=== PATIENT | female | born 1975 | race Hispanic/Latino ===

== ENCOUNTER 2024-10-20 20:57 | Emergency (ER) | payer OTHER, SELFPAY ==
--- OUTSIDE RECORDS SUMMARY | 2024-10-20 21:03 | XMS REPORT | Continuity of Care Document ---
Author Name Unknown Address [address] [facility] [address] [place] [address] [facility] thconnect Address [address] [facility] [facility] [address] [place] [address] Care Team Providers Care Forensic Specialist Name Role Phone Marcio DIEGO, [facility] Primary Care Physician [phone] TAMAR DOMINIQUE Attending Clinician Unavailable Vaccine, Adc Family Attending Clinician UnavailTamar Angulo Attending Clinician [phone] Braxton Castellanos MD Attending Clinician BRAXTON CASTELLANOS Attending Clinician Unavailable Gabriela Mao Attending Clinician [phone] Doctor Unassigned, [place] Attending Clinician U navailable Payers Payer Name Policy Type Policy Number Effective Date Expirati on Date Source [employer] [id number] 2019 00:00:00 Problems Condition Name Condition Details Condition Category Status Onset Date Resolution Date Last Treatment Date Treating Clinician Comments Source with inconclusi ve viability with inconclusi ve viability Disease Active 2018-11 00:00: 00 [facility] Multiparit y Multiparit y Disease Active 2018-11 00:00: 00 [facility] BMI 26.0-26.9, adult BMI 26.0-26.9, adult Disease Active 2016-11 0 00:00: 00 [facility] Essential hypertensi on Essential hypertensi on Disease Active 07-24 00:00: 00 Overview: Formattin g of this note might be different from the original. ICD10 Diagnosis Term Director Plans Utility [facility] Type 2 diabetes mellitus without complicati on, with long-term current use of insulin Type 2 diabetes mellitus without complicati on, with long-term current use of insulin Disease Active 07-24 00:00: 00 Overview: Formattin g of this note might be different from the original. ICD10 Diagnosis Term Director Plans Utility [facility] Cervical high risk human papillomav irus (HPV) DNA test positive Cervical high risk human papillomav irus (HPV) DNA test positive Disease Active 07-24 00:00: 00 Overview: Formattin g of this note might be different from the original. HPV + x2, 5 Colposcop y-WNL, 6- Normal Pap , HPV+ HPV positive on 08/2017 pap smear---- > Needs Colposcop y [facility] Multigravi da of advanced maternal age in first trimester Multigravi da of advanced maternal age in first trimester Disease Active 12-06 00:00: 00 Overview: Formattin g of this note might be different from the original. Offer Genetics. [facility] Allergies, Adverse Reactions, Alerts Allergy Name Allergy Type Status Severity Reaction(s) Onset Date Inactive Date Treating Clinician Comments Source NO KNOWN ALLERGIE S Drug Class Active [facility] Social History Social Habit Start Date Stop Date Quantity Comments Source Tobacco use and exposure 2020-06-30 00:00:00 2020-06-30 00:00:00 Never used [facility] Alcohol intake 2020-06-30 00:00:00 2020-06-30 00:00:00 Current non-drinker of alcohol (finding) [facility] Sex Assigned At 1975 00:00:00 1975 00:00:00 [facility] Smoking Status Start Date Stop Date Source Never smoker [facility] Medications Ordered Medication Name Filled Medication Name Start Date Stop Date Current Medication? Ordering Clinician Indication Dosage Frequency Signature (SIG) Comments Components Source Novolin 70/30 U-100 Insulin 100 unit/mL subcutaneou s suspension 2023-11 00:00: 00 Yes unit/mL (70-30) Mamadou Moser Jardiance 25 mg tablet 2023-11- 00:00: 00 Yes 1mg Mamadou Moser atorvastati n 40 mg tablet 2023-11 00:00: 00 Yes 1mg Mamadou Moser cetirizine 10 mg tablet 2023-11 00:00: 00 Yes 1mg Mamadou Moser lisinopril 5 mg tablet 2023-11 00:00: 00 Yes 1mg Mamadou Moser metformin 850 mg tablet 2023-11 00:00: 00 Yes 1mg Mamadou Moser Flonase Allergy Relief 50 mcg/actuati on nasal spray,suspe nsion 2023-11 00:00: 00 Yes 12mcg/a ctuatio n Mamadou Moser metformin 850 mg tablet 2023-11 00:00: 00 Yes 1mg Mamadou Moser atorvastati n 40 mg tablet 2023-11 00:00: 00 Yes 1mg Mamadou Moser lisinopril 5 mg tablet 2023-11 00:00: 00 Yes 1mg Mamadou Moser Novolin 70/30 U-100 Insulin 100 unit/mL subcutaneou s suspension 8-05 00:00: 00 Yes unit/mL (70-30) Mamadou Moser Novolin 70/30 U-100 Insulin 100 unit/mL subcutaneou s suspension - 00:00: 00 Yes unit/mL (70-30) Mamadou Moser atorvastati n 40 mg tablet - 00:00: 00 Yes 1mg Mamadou Moser lisinopril 5 mg tablet -16 00:00: 00 Yes 1mg Mamadou Moser metformin 850 mg tablet -16 00:00: 00 Yes 1mg Mamadou Moser metformin 850 mg tablet - 00:00: 00 Yes 1mg Mamadou Moser levocetiriz ine 5 mg tablet 4- 00:00: 00 Yes 1mg Mamadou Moser Novolin 70/30 U-100 Insulin 100 unit/mL subcutaneou s suspension 4- 00:00: 00 Yes unit/mL (70-30) Mamadou Moser lisinopril 5 mg tablet 02-20 00:00: 00 Yes 1mg Mamadou Moser atorvastati n 40 mg tablet 10 00:00: 00 Yes 1mg Mamadou Moser metformin 850 mg tablet 10 00:00: 00 Yes 1mg Mamadou Moser Novolin 70/30 U-100 Insulin 100 unit/mL subcutaneou s suspension 01-10 00:00: 00 Yes unit/mL (70-30) Mamadou Moser atorvastati n 40 mg tablet 01-10 00:00: 00 Yes 1mg Mamadou Moser lisinopril 5 mg tablet 01-10 00:00: 00 Yes 1mg Mamadou Moser metformin 850 mg tablet 01-10 00:00: 00 Yes 1mg Mamadou Moser INJECT 35 UNITS UNDER SKIN IN THE AFTERNOON 12-18 00:00: 00 Yes [id number] Mamadou Moser TAKE 1 TABLET BY MOUTH ONCE DAILY 12-18 00:00: 00 Yes Mamadou Moser TAKE 1 TABLET BY MOUTH THREE TIMES DAILY 12-18 00:00: 00 Yes Mamadou Moser TAKE 1 TABLET BY MOUTH ONCE DAILY 2022-11 00:00: 00 Yes Mamadou Moser TAKE 1 TABLET BY MOUTH THREE TIMES DAILY 2022-11 00:00: 00 03-16 00:00 :00 No 850 Mamadou Moser TAKE 10 ML BY MOUTH EVERY 4 TO 6 HOURS NEEDED 2022-11 00:00: 00 Yes Mamadou Moser TAKE 10 ML EVERY 4-6 HOURS NEEDED 2022-11 00:00: 00 03-16 00:00 :00 No [id number] Mamadou Moser TAKE 1 TABLET BY MOUTH THREE TIMES DAILY 07-17 00:00: 00 Yes Mamadou Moser INJECT 35 UNITS UNDER THE SKIN IN THE AFTERNOON 07-14 00:00: 00 Yes Mamadou Moser TAKE 1 TABLET BY MOUTH ONCE DAILY 07-14 00:00: 00 Yes Mamadou Moser INJECT 35 UNITS UNDER SKIN IN THE AFTERNOON 07-14 00:00: 00 Yes [id number] Mamadou Babb Ehsan TAKE 1 TABLET BY MOUTH ONCE DAILY 9- 00:00: 00 03-16 00:00 :00 No 5 Mamadou F Ehsan TAKE 1 TABLET BY MOUTH ONCE DAILY - 00:00: 00 03-16 00:00 :00 No 40 Mamadou F Ehsan TAKE 1 TABLET BY MOUTH ONCE DAILY 05-08 00:00: 00 03-16 00:00 :00 No 5 Mamadou F Ehsan TAKE 1 TABLET BY MOUTH ONCE DAILY - 00:00: 00 03-16 00:00 :00 No 5 Mamadou F Ehsan TAKE 1 TABLET BY MOUTH THREE TIMES DAILY 03-23 00:00: 00 Yes 850 Mamadou F Ehsan INJECT 30 UNITS UNDER THE SKIN IN THE AFTERNOON 03-23 00:00: 00 Yes Mamadou F Ehsan TAKE 1 TABLET BY MOUTH ONCE DAILY 03-23 00:00: 00 03-16 00:00 :00 No 40 Mamadou F Ehsan INJECT 30 UNITS UNDER SKIN IN THE AFTERNOON 03-23 00:00: 00 03-16 00:00 :00 No [id number] Mamadou F Ehsan TAKE 1 TABLET BY MOUTH THREE TIMES DAILY - 00:00: 00 03-16 00:00 :00 No 850 Mamadou F Ehsan TAKE 1 TABLET BY MOUTH THREE TIMES DAILY WITH MEALS 2021-11 00:00: 00 Yes Mamadou F Ehsan TAKE 1 TABLET DAILY. 2021-11 00:00: 00 03-16 00:00 :00 No Mamadou F Ehsan INJECT 30 UNITS UNDER SKIN IN THE AFTERNOON 2021-11 00:00: 00 03-16 00:00 :00 No [id number] Mamadou F Ehsan TAKE 1 TABLET DAILY. 2021-11 00:00: 00 03-16 00:00 :00 No 5 Mamadou F Ehsan Dose Unknown 2021-11 00:00: 00 Yes Mamadou F Ehsan TAKE 1 TABLET DAILY. 06-28 00:00: 00 Yes 40 Mamadou F Ehsan Dose Unknown 2022-0 8-16 00:00: 00 Yes Mamadou F Ehsan INJECT 30 UNITS UNDER THE SKIN IN THE AFTERNOON 0 816 00:00: 00 Yes Mamadou Moser TAKE 1 TABLET DAILY. 0 15 00:00: 00 Yes 40 Mamadou Moser Dose Unknown 0 15 00:00: 00 Yes Mamadou Moser Dose Unknown 06-22 00:00: 00 Yes Mamadou Moser TAKE 1 TABLET BY MOUTH THREE TIMES DAILY WITH MEALS 0 06-22 00:00: 00 Yes Mamadou Moser TAKE 1 TABLET BY MOUTH ONCE DAILY NEEDED FOR DIZZINESS 0 06-22 00:00: 00 Yes Mamadou Moser Dose Unknown 06-22 00:00: 00 No TAKE 1 TABLET BY MOUTH ONCE DAILY 0 06-22 00:00: 00 03-16 00:00 :00 No Mamadou Moser TAKE 1 TABLET BY MOUTH ONCE DAILY 06-22 00:00: 00 03-16 00:00 :00 No Mamadou Moser Dose Unknown 06-21 00:00: 00 Yes Mamadou Moser Dose Unknown 06-21 00:00: 00 No lisinopril 5 mg tablet 0 05-01 00:00: 00 Yes 1mg Mamadou Moser metformin 850 mg tablet 0 05-01 00:00: 00 Yes 1mg Mamadou Moser atorvastati n 40 mg tablet 0 05-01 00:00: 00 Yes 1mg Mamadou Moser lisinopril 5 mg tablet 0 05-01 00:00: 00 No 1mg metformin 850 mg tablet 0 05-01 00:00: 00 No 1mg atorvastati n 40 mg tablet 0 05-01 00:00: 00 No 1mg atorvastati n 40 mg tablet 0 04-11 00:00: 00 Yes 1mg Mamadou Moser atorvastati n 40 mg tablet 0 30 00:00: 00 No 1mg TAKE 1 TABLET BY MOUTH TWICE DAILY WITH MEALS 0 03-24 00:00: 00 Yes Mamadou Moser TAKE 1 TABLET BY MOUTH THREE TIMES DAILY NEEDED 03-18 00:00: 00 Yes Mamadou Moser Dose Unknown 03-11 00:00: 00 Yes Mamadou Moser Dose Unknown 03-11 00:00: 00 No Dose Unknown 03-10 00:00: 00 Yes Mamadou Moser Dose Unknown 03-10 00:00: 00 No Dose Unknown 03-07 00:00: 00 Yes Mamadou Moser Dose Unknown 03-07 00:00: 00 No Dose Unknown 03-06 00:00: 00 Yes Mamadou Moser Dose Unknown 03-06 00:00: 00 No meclizine 25 mg tablet 03-04 00:00: 00 Yes 1mg Mamadou Moser meclizine 25 mg tablet 03-04 00:00: 00 No 1mg metformin 850 mg tablet 3-08 00:00: 00 Yes 1mg Mamadou Moser metformin 850 mg tablet 3-08 00:00: 00 No 1mg lisinopril 5 mg tablet 3-05 00:00: 00 No 1mg metformin 850 mg tablet 3-05 00:00: 00 No 1mg ibuprofen 600 mg tablet 3-05 00:00: 00 No 1mg Dose Unknown 3-05 00:00: 00 No Novolin 70/30 U-100 Insulin 100 unit/mL subcutaneou s suspension 3-05 00:00: 00 Yes unit/mL (70-30) Mamadou Moser lisinopril 5 mg tablet 3-05 00:00: 00 Yes 1mg Mamadou Moser metformin 850 mg tablet 3-05 00:00: 00 Yes 1mg Mamadou Moser ibuprofen 600 mg tablet 3-05 00:00: 00 Yes 1mg Mamadou Moser Dose Unknown 3-05 00:00: 00 Yes Mamadou Moser Novolin 70/30 U-100 Insulin 100 unit/mL subcutaneou s suspension 3-05 00:00: 00 No unit/mL (70-30) Dose Unknown 2020-11 2-03 00:00: 00 No Dose Unknown 2020-11 00:00: 00 Yes Mamadou Moser Dose Unknown 2020-11 00:00: 00 No Dose Unknown 2020-11 00:00: 00 No Dose Unknown 2020-11 00:00: 00 No atorvastati n 40 mg tablet 2020-11 00:00: 00 No 1mg Dose Unknown 2020-11 00:00: 00 Yes Mamadou Moser Dose Unknown 2020-11 00:00: 00 Yes Mamadou Moser Dose Unknown 2020-11 00:00: 00 Yes Mamadou Moser atorvastati n 40 mg tablet 2020-11 00:00: 00 Yes 1mg Mamadou Moser atorvastati n 40 mg tablet 07-13 00:00: 00 No 1mg atorvastati n 40 mg tablet 07-13 00:00: 00 Yes 1mg Mamadou Moser Dose Unknown 07-08 00:00: 00 No Ann Allergy 180 mg tablet 07-08 00:00: 00 No 1mg metformin 850 mg tablet 07-08 00:00: 00 No 1mg lisinopril 5 mg tablet 07-08 00:00: 00 No 1mg Dose Unknown 07-08 00:00: 00 Yes Mamadou Moser Ann Allergy 180 mg tablet 07-08 00:00: 00 Yes 1mg Mamadou Moser metformin 850 mg tablet 07-08 00:00: 00 Yes 1mg Mamadou Moser lisinopril 5 mg tablet 07-08 00:00: 00 Yes 1mg Mamadou Moser Dose Unknown 06-15 00:00: 00 No Dose Unknown 06-15 00:00: 00 Yes Mamadou Moser Novolin 70/30 U-100 Insulin 100 unit/mL subcutaneou s suspension 04-05 00:00: 00 No unit/mL (70-30) metformin 850 mg tablet 04-05 00:00: 00 No 1mg lisinopril 5 mg tablet 04-05 00:00: 00 No 1mg Dose Unknown 04-05 00:00: 00 No Novolin 70/30 U-100 Insulin 100 unit/mL subcutaneou s suspension 04-05 00:00: 00 Yes unit/mL (70-30) Mamadou Moser metformin 850 mg tablet 04-05 00:00: 00 Yes 1mg Mamadou Moser lisinopril 5 mg tablet 04-05 00:00: 00 Yes 1mg Mamadou Moser Dose Unknown 04-05 00:00: 00 Yes Mamadou Moser Novolin 70/30 U-100 Insulin 100 unit/mL subcutaneou s suspension 02-03 00:00: 00 No unit/mL (70-30) metformin 850 mg tablet 02-03 00:00: 00 No 1mg lisinopril 5 mg tablet 02-03 00:00: 00 No 1mg Novolin 70/30 U-100 Insulin 100 unit/mL subcutaneou s suspension 02-03 00:00: 00 Yes unit/mL (70-30) Mamadou Moser metformin 850 mg tablet 02-03 00:00: 00 Yes 1mg Mamadou Moser lisinopril 5 mg tablet 02-03 00:00: 00 Yes 1mg Mamadou Moser Novolin 70/30 U-100 Insulin 100 unit/mL subcutaneou s suspension 01-08 00:00: 00 No unit/mL (70-30) metformin 850 mg tablet 01-08 00:00: 00 No 1mg Novolin 70/30 U-100 Insulin 100 unit/mL subcutaneou s suspension 01-08 00:00: 00 Yes unit/mL (70-30) Mamadou Moser metformin 850 mg tablet - 00:00: 00 Yes 1mg Mamadou Moser lisinopril 5 mg tablet -24 00:00: 00 No 1mg lisinopril 5 mg tablet 2-24 00:00: 00 Yes 1mg Mamadou Moser Dose Unknown 12-23 00:00: 00 No Dose Unknown 2 00:00: 00 Yes Mamadou Moser Bactrim DS 800 mg-160 mg tablet 02-26 00:00: 00 No 1mg Bactrim DS 800 mg-160 mg tablet 02-26 00:00: 00 Yes 1mg Mamadou Moser norethindro ne 0.35 mg tablet 2018-11 00:00: 00 Yes [id number] .35mg Take 1 tablet by mouth daily. [facility] insulin NPH hum/reg insulin hm (NOVOLIN 70/30 U-100 INSULIN SC) 2018-11 15:24: 29 Yes 20U inject 20 Units under the skin 2 (two) times daily. [facility] metformin 1,000 mg tablet 01-23 00:00: 00 No 1mg metformin 1,000 mg tablet 01-23 00:00: 00 Yes 1mg Mamadou Moser Novolin 70/30 100 unit/mL subcutaneou s suspension 2015-11 00:00: 00 No unit/mL (70-30) metformin 1,000 mg tablet 2015-11 00:00: 00 No 1mg Novolin 70/30 U-100 Insulin 100 unit/mL subcutaneou s suspension 2015-11 00:00: 00 Yes unit/mL (70-30) Mamadou Moser metformin 1,000 mg tablet 2015-11 00:00: 00 Yes 1mg Mamadou Moser metformin 1,000 mg tablet 06-05 00:00: 00 No 1mg metformin 1,000 mg tablet 06-05 00:00: 00 Yes 1mg Mamadou Moser Bactrim DS 800 mg-160 mg tablet 05-27 00:00: 00 No 1mg Bactrim DS 800 mg-160 mg tablet 05-27 00:00: 00 Yes 1mg Mamadou Moser Lantus 100 unit/mL subcutaneou s solution 12-16 00:00: 00 No 10unit/ mL metformin 500 mg tablet 12-16 00:00: 00 No 1mg metformin 1,000 mg tablet 12-16 00:00: 00 No 1mg Lantus 100 unit/mL subcutaneou s solution 12-16 00:00: 00 Yes 10unit/ mL Mamadou Moser metformin 500 mg tablet 12-16 00:00: 00 Yes 1mg Mamadou Moser metformin 1,000 mg tablet 12-16 00:00: 00 Yes 1mg Mamadou Moser Vital Signs Vital Name Observation Time Observation Value Comments S ource BP Systolic 2024-10-08 16:50:00 135 mm[Hg] Step hen F Ehsan BP Diastolic 2024-10-08 16:50:00 84 mm[Hg] Avinash phen F Ehsan Weight Measured 2024-10-08 16:50:00 150.20 pounds Mamadou F Ehsan Height Measured 2024-10-08 16:50:00 62.00 inches Mamadou F Ehsan Body Temperature 2024-10-08 16:50:00 98.70 degrees Mamadou F Ehsan Heart Rate 2024-10-08 16:50:00 98.00 /min Nirali en F Ehsan Respiratory Rate 2024-10-08 16:50:00 18.00 /min Mamadou F Ehsan BP Systolic 2024-09-26 17:05:00 132 mm[Hg] Step hen F Ehsan BP Diastolic 2024-09-26 17:05:00 82 mm[Hg] Avinash phen F Ehsan Weight Measured 2024-09-26 17:05:00 168.80 pounds Mamadou Moser Height Measured 2024-09-26 17:05:00 62.00 inches Mamadou F Ehsan Body Temperature 2024-09-26 17:05:00 97.80 degrees Mamadou F Ehsan Heart Rate 2024-09-26 17:05:00 105.00 /min Step hen F Ehsan Respiratory Rate 2024-09-26 17:05:00 18.00 /min Mamadou F Ehsan BP Systolic 2024-05-28 17:08:00 128 mm[Hg] Step hen F Ehsan BP Diastolic 2024-05-28 17:08:00 84 mm[Hg] Avinash phen F Ehsan Weight Measured 2024-05-28 17:08:00 173.40 pounds Mamadou Moser Height Measured 2024-05-28 17:08:00 62.00 inches Mamadou Skinny Moser Body Temperature 2024-05-28 17:08:00 98.20 degrees Mamadou F Ehsan Heart Rate 2024-05-28 17:08:00 102.00 /min Step hen F Ehsan Respiratory Rate 2024-05-28 17:08:00 17.00 /min Mamadou F Ehsan BP Systolic 2024-02-21 16:21:00 137 mm[Hg] Step hen F Ehsan BP Diastolic 2024-02-21 16:21:00 85 mm[Hg] Avinash phen F Ehsan Weight Measured 2024-02-21 16:21:00 172.60 pounds Mamadou F Ehsan Height Measured 2024-02-21 16:21:00 62.00 inches Mamadou F Ehsan Body Temperature 2024-02-21 16:21:00 98.20 degrees Mamadou F Ehsan Heart Rate 2024-02-21 16:21:00 100.00 /min Step hen F Ehsan Respiratory Rate 2024-02-21 16:21:00 18.00 /min Mamadou F Ehsan BP Systolic 2023-12-18 16:32:00 128 mm[Hg] Step hen F Ehsan BP Diastolic 2023-12-18 16:32:00 83 mm[Hg] Avinash phen F Ehsan Weight Measured 2023-12-18 16:32:00 169.80 pounds Mamadou F Ehsan Height Measured 2023-12-18 16:32:00 62.00 inches Mamadou F Ehsan Body Temperature 2023-12-18 16:32:00 97.90 degrees Mamadou F Ehsan Heart Rate 2023-12-18 16:32:00 100.00 /min Step hen F Ehsan Respiratory Rate 2023-12-18 16:32:00 Mamadou F Ehsan BP Systolic 2023-09-21 11:49:00 144 mm[Hg] Step hen F Ehsan BP Diastolic 2023-09-21 11:49:00 79 mm[Hg] Avinash phen F Ehsan Weight Measured 2023-09-21 11:49:00 165.00 pounds Mamadou F Ehsan Height Measured 2023-09-21 11:49:00 62.00 inches Mamadou F Ehsan Body Temperature 2023-09-21 11:49:00 98.20 degrees Mamadou F Ehsan Heart Rate 2023-09-21 11:49:00 102.00 /min Step hen F Ehsan Respiratory Rate 2023-09-21 11:49:00 19.00 /min Mamadou F Ehsan BP Systolic 2023-07-14 16:43:00 146 mm[Hg] Step hen F Ehsan BP Diastolic 2023-07-14 16:43:00 90 mm[Hg] Avinash phen F Ehsan Weight Measured 2023-07-14 16:43:00 163.80 pounds Mamadou F Ehsan Height Measured 2023-07-14 16:43:00 62.00 inches Mamadou F Ehsan Body Temperature 2023-07-14 16:43:00 98.30 degrees Mamadou F Ehsan Heart Rate 2023-07-14 16:43:00 99.00 /min Nirali en F Ehsan Respiratory Rate 2023-07-14 16:43:00 17.00 /min Mamadou F Ehsan BP Systolic 2023-04-05 16:51:00 130 mm[Hg] Step hen F Ehsan BP Diastolic 2023-04-05 16:51:00 83 mm[Hg] Avinash phen F Ehsan Weight Measured 2023-04-05 16:51:00 153.20 pounds Mamadou F Ehsan Height Measured 2023-04-05 16:51:00 62.00 inches Mamadou F Ehsan Body Temperature 2023-04-05 16:51:00 98.00 degrees Mamadou F Ehsan Heart Rate 2023-04-05 16:51:00 96.00 /min Nirali en F Ehsan Respiratory Rate 2023-04-05 16:51:00 Mamadou F Ehsan BP Systolic 2023-03-23 10:16:00 120 mm[Hg] Step hen F Ehsan BP Diastolic 2023-03-23 10:16:00 83 mm[Hg] Avinash phen F Ehsan Weight Measured 2023-03-23 10:16:00 153.40 pounds Mamadou F Ehsan Height Measured 2023-03-23 10:16:00 62.00 inches Mamadou F Ehsan Body Temperature 2023-03-23 10:16:00 98.20 degrees Mamadou F Ehsan Heart Rate 2023-03-23 10:16:00 98.00 /min Nirali en F Ehsan Respiratory Rate 2023-03-23 10:16:00 Mamadou F Ehsan BP Systolic 2022-10-07 16:43:00 146 mm[Hg] Step hen F Ehsan BP Diastolic 2022-10-07 16:43:00 83 mm[Hg] Avinash phen F Ehsan Weight Measured 2022-10-07 16:43:00 152.00 pounds Mamadou F Ehsan Height Measured 2022-10-07 16:43:00 62.00 inches Mamadou F Ehsan Body Temperature 2022-10-07 16:43:00 98.20 degrees Mamadou F Ehsan Heart Rate 2022-10-07 16:43:00 108.00 /min Step hen F Ehsan Respiratory Rate 2022-10-07 16:43:00 18.00 /min Mamadou F Ehsan BP Systolic 2022-06-22 11:43:00 124 mm[Hg] Step hen F Ehsan BP Diastolic 2022-06-22 11:43:00 81 mm[Hg] Avinash phen F Ehsan Weight Measured 2022-06-22 11:43:00 155.00 pounds Mamadou F Ehsan Height Measured 2022-06-22 11:43:00 62.00 inches Mamadou F Ehsan Body Temperature 2022-06-22 11:43:00 98.40 degrees Mamadou F Ehsan Heart Rate 2022-06-22 11:43:00 98.00 /min Nirali en F Ehsan Respiratory Rate 2022-06-22 11:43:00 18.00 /min Mamadou F Ehsan BP Systolic 2022-03-04 13:25:00 127 mm[Hg] Step hen F Ehsan BP Diastolic 2022-03-04 13:25:00 81 mm[Hg] Avinash phen F Ehsan Weight Measured 2022-03-04 13:25:00 157.20 pounds Mamadou F Ehsan Height Measured 2022-03-04 13:25:00 62.00 inches Mamadou F Ehsan Body Temperature 2022-03-04 13:25:00 97.80 degrees Mamadou F Ehsan Heart Rate 2022-03-04 13:25:00 101.00 /min Step hen F Ehsan Respiratory Rate 2022-03-04 13:25:00 16.00 /min Mamadou F Ehsan BP Systolic 2022-01-15 11:25:00 108 mm[Hg] BP Diastolic 2022-01-15 11:25:00 71 mm[Hg] Weight Measured 2022-01-15 11:25:00 127.20 pounds Height Measured 2022-01-15 11:25:00 62.00 inches Body Temperature 2022-01-15 11:25:00 98.20 degrees Heart Rate 2022-01-15 11:25:00 110.00 /min Respiratory Rate 2022-01-15 11:25:00 BP Systolic 2021-10-11 17:23:00 127 mm[Hg] BP Diastolic 2021-10-11 17:23:00 83 mm[Hg] Weight Measured 2021-10-11 17:23:00 163.40 pounds Height Measured 2021-10-11 17:23:00 62.00 inches Body Temperature 2021-10-11 17:23:00 98.40 degrees Heart Rate 2021-10-11 17:23:00 110.00 /min Respiratory Rate 2021-10-11 17:23:00 18.00 /min BP Systolic 2021-07-08 11:16:00 119 mm[Hg] BP Diastolic 2021-07-08 11:16:00 73 mm[Hg] Weight Measured 2021-07-08 11:16:00 160.40 pounds Height Measured 2021-07-08 11:16:00 62.00 inches Body Temperature 2021-07-08 11:16:00 98.10 degrees Heart Rate 2021-07-08 11:16:00 100.00 /min Respiratory Rate 2021-07-08 11:16:00 BP Systolic 2021-04-05 16:44:00 133 mm[Hg] BP Diastolic 2021-04-05 16:44:00 84 mm[Hg] Weight Measured 2021-04-05 16:44:00 160.60 pounds Height Measured 2021-04-05 16:44:00 62.00 inches Body Temperature 2021-04-05 16:44:00 98.40 degrees Heart Rate 2021-04-05 16:44:00 95.00 /min Respiratory Rate 2021-04-05 16:44:00 17.00 /min BP Systolic 2021-02-03 16:46:00 132 mm[Hg] BP Diastolic 2021-02-03 16:46:00 79 mm[Hg] Weight Measured 2021-02-03 16:46:00 159.40 pounds Height Measured 2021-02-03 16:46:00 62.00 inches Body Temperature 2021-02-03 16:46:00 98.60 degrees Heart Rate 2021-02-03 16:46:00 103.00 /min Respiratory Rate 2021-02-03 16:46:00 18.00 /min BP Systolic 2021-01-06 17:37:00 159 mm[Hg] BP Diastolic 2021-01-06 17:37:00 94 mm[Hg] Weight Measured 2021-01-06 17:37:00 161.40 pounds Height Measured 2021-01-06 17:37:00 62.00 inches Body Temperature 2021-01-06 17:37:00 99.00 degrees Heart Rate 2021-01-06 17:37:00 97.00 /min Respiratory Rate 2021-01-06 17:37:00 17.00 /min BP Systolic 2020-12-23 17:31:00 153 mm[Hg] BP Diastolic 2020-12-23 17:31:00 92 mm[Hg] Weight Measured 2020-12-23 17:31:00 162.20 pounds Height Measured 2020-12-23 17:31:00 62.00 inches Body Temperature 2020-12-23 17:31:00 98.00 degrees Heart Rate 2020-12-23 17:31:00 104.00 /min Respiratory Rate 2020-12-23 17:31:00 17.00 /min BP Systolic 2020-02-27 13:56:00 137 mm[Hg] BP Diastolic 2020-02-27 13:56:00 85 mm[Hg] Weight Measured 2020-02-27 13:56:00 149.80 pounds Height Measured 2020-02-27 13:56:00 62.00 inches Body Temperature 2020-02-27 13:56:00 98.70 degrees Heart Rate 2020-02-27 13:56:00 106.00 /min Respiratory Rate 2020-02-27 13:56:00 16.00 /min Procedures Procedure Date / Time Performed Performing Clinicia [facility] Source [id number] Ultrasound, Abdominal, Real Time With Image Documentation; Complete 2024-01-11 00:00:00 Mamadou Moser SARS-COV-2 COVID-19 VACCINE,0.3ML,IM (PFIZER) 2021-06-12 18:33:18 Doctor Unassigned, [facility] SARS-COV-2 COVID-19 VACCINE,0.3ML,IM (PFIZER) 2021-05-22 19:12:10 Doctor Unassigned, [facility] REFERRAL- REQUEST/RESPONSE 2020-12-25 06:01:00 Doctor Unassigned, [facility] Plan of Care Planned Activity Planned Date Details Comments Source Goal Plan of Care Note [code = 98193-1] Goal Plan of Care Note [code = 47947-9] Goal Plan of Care Note [code = 59986-4] Goal Plan of Care Note [code = 50132-1] Goal Plan of Care Note [code = 20090-5] Goal Plan of Care Note [code = 40935-1] Goal Plan of Care Note [code = 50964-5] Goal Plan of Care Note [code = 72169-2] Goal Plan of Care Note [code = 80698-0] Goal Plan of Care Note [code = 42319-9] Goal Plan of Care Note [code = 21438-1] Goal Plan of Care Note [code = 31787-4] Goal Plan of Care Note [code = 00769-9] Goal Plan of Care Note [code = 79409-8] Goal Plan of Care Note [code = 74791-3] Goal Plan of Care Note [code = 00735-0] Goal Plan of Care Note [code = 78674-4] Goal Plan of Care Note [code = 81317-3] Goal Plan of Care Note [code = 90589-5] Goal Plan of Care Note [code = 92030-1] Goal Plan of Care Note [code = 49995-4] Goal Plan of Care Note [code = 76729-1] Goal Plan of Care Note [code = 12087-8] Goal Plan of Care Note [code = 79260-4] Encounters Start Date/Time End Date/Time Encounter Type Admission Type Attending Clinicians Care Facility Care Department Encounter ID Source 2024-10-19 13:46:12 2024-10-19 13:46:12 Outpatient [facility] [id number] Mamadou Moser 2024-10-08 16:35:01 2024-10-08 16:35:01 Outpatient [facility] [id number] Mamadou Moser 2024-10-08 00:00:00 2024-10-08 00:00:00 Outpatient Visit [facility] [id number] Mamadou Moser 2024-09-27 15:33:29 2024-09-27 15:33:29 Outpatient [facility] [id number] Mamadou Moser 2024-09-26 16:49:04 2024-09-26 16:49:04 Outpatient SFA SFA 1113 Mamadou Moser 2024-09-26 00:00:00 2024-09-26 00:00:00 Outpatient Visit SFA [id number] Mamadou Moser 2024-05-28 16:56:26 2024-05-28 16:56:26 Outpatient SFA SFA 0716 Mamadou Moser 2024-05-28 00:00:00 2024-05-28 00:00:00 Outpatient Visit SFA [id number] Mamadou Moser 2024-02-23 16:56:28 2024-02-23 16:56:28 Outpatient SFA SFA 2 Mamadou Moser 2024-02-21 16:13:15 2024-02-21 16:13:15 Outpatient SFA SFA 0 Mamadou Moser 2024-01-11 09:29:54 2024-01-11 09:29:54 Outpatient SFA SFA 0229 Mamadou Moser 2023-12-18 16:31:42 2023-12-18 16:31:42 Outpatient SFA SFA 0205 Mamadou Moser 2023-09-21 11:40:21 2023-09-21 11:40:21 Outpatient SFA SFA 1109 Mamadou Moser 2023-07-14 16:32:07 2023-07-14 16:32:07 Outpatient SFA SFA 0901 Mamadou Moser 2023-04-11 15:31:40 2023-04-11 15:31:40 Outpatient SFA SFA 0530 Mamadou Babb Ehsan 2023-04-10 14:55:44 2023-04-10 14:55:44 Outpatient [facility] 528 Mamadou Babb Ehsan 2023-04-06 16:13:15 2023-04-06 16:13:15 Outpatient [facility] 524 Mamadou Babb Ranier 2023-04-05 16:44:10 2023-04-05 16:44:10 Outpatient [facility] 523 Mamadou Babb Ranier 2023-03-23 10:16:09 2023-03-23 10:16:09 Outpatient [facility] 05 Mamadou Babb Ranier 2022-10-07 16:31:59 2022-10-07 16:31:59 Outpatient [facility] 1125 Mamadou Babb Ehsan 2022-06-22 00:00:00 2022-06-22 00:00:00 Outpatient Visit [id number] 2021-06-12 13:45:00 2021-06-12 13:45:00 Outpatient Angela TAMAR DOMINIQUE [facility] [id number] [facility] 2021-06-12 13:28:25 2021-06-12 13:38:25 Imm/Inj Visit Vaccine, Kasia Family Dominique [facility] [id number] [id number] [id number] [id number] [facility] 2021-06-12 13:40:00 2021-06-12 13:37:38 Outpatient Angela TAMAR DOMINIQUE [facility] [id number] [facility] 2021-05-22 14:04:06 2021-05-22 14:14:06 Imm/Inj Visit Vaccine, Braxton Johnson [facility] .2.840.114 350.1.13.10 [id number] [id number] [facility] 2021-05-22 14:00:00 2021-05-22 14:00:00 Outpatient BRAXTON GOLDEN [facility] [id number] [facility] 2021-02-20 16:00:00 2021-02-20 16:00:00 Outpatient R [facility] [id number] [facility] 2021-02-20 13:40:00 2021-02-20 13:40:00 Outpatient [facility] [id number] [facility] 2021-01-08 00:00:00 2021-01-08 00:00:00 Letter (Out) Gabriela Yanez [facility] [id number] [id number] [id number] [id number] [facility] 2020-12-25 00:00:00 2020-12-25 00:00:00 Orders Only Doctor Unassigned, [place] [facility] [id number] 350.1.13.10 [id number] [id number] [facility] Results Test Description Test Time Test Comments Results Result Co mments Source VAGINAL PATHOGENS DNA [id number] 10:26:29* Test Item Value Reference Range Interpretation Comme nts TIFFANIE SPECIES (test code = 01794) NEGATIVE NEGATIVE G. VAGINALIS (test code = 79731) NEGATIVE NEGATIVE T. VAGINALIS (test code = 35381) NEGATIVE NEGATIVE Note: The BD Aff irm VPIII Microbial Identification Testis a DNA probe test intended for use in the detectionand identification of Tiffanie species, Gardnerellavaginalis and Trichomonas vaginalis nucleic acid. UNLESS OTHERWISE INDICATED, ALL TESTING PERFORMED AT [facility] [address] [place] [id number] SERVER SECURITY ADMINISTRATOR: ANDREE MICHAEL M.D. CLIA NUMBER [id number] [place]. [id number] Occult Blood, Fecal, [id number] 00:00:00* Test Item Value Reference Range Interpretation Comme nts Occult Blood, Fecal, IA (cassi t code = 01342-0) Negative Mamadou MoserALBUMIN/CREATININE RATIO, URINE, [id number] 05:16:54* Test Item Value Reference Range Interpretation Comme nts CREATININE, URINE, CONC. (test code = 2072) 46.9 MG/DL NOT ESTAB ALBUMIN, URINE, RANDOM (test code = 94507) <0.2 MG/DL NOT ESTAB CALC ALBUMIN/CREAT, RND (test code = 51447) <4 MG/G <30 Note: Albumin/Cr eatinine ratio reference interval reflects ADA and NKF guidelines. UNLESS OTHERWISE INDICATED, ALL TESTING PERFORMED AT [facility] [address] [place] [address] SERVER SECURITY ADMINISTRATOR: ANDREE MICHAEL M.D. CLIA NUMBER [id number] [place]. [id number] COMPREHENSIVE METABOLIC [id number] 05:08:23* Test Item Value Reference Range Interpretation Comme nts GLUCOSE (test code = 7) 263 MG/DL 70-99 H BUN (test code = 2208) 22 MG/DL 6-20 H CREATININE (test code = 2214) 0.70 MG/DL 0.60-1.30 eGFR (2020 CKD-EPI) (test code = 40085) 107 ML/MIN/1.73 >60 CALC BUN/CREAT (test code = 2235) 31 RATIO 6-28 H SODIUM (test code = 2231) 133 MEQ/L 133-146 POTASSIUM (test code = 2228) 4.4 MEQ/L 3.5-5.4 CHLORIDE (test code = 2215) 97 MEQ/L 95-107 CARBON DIOXIDE (test code = 2206) 26 MEQ/L 19-31 CALCIUM (test code = 2209) 9.5 MG/DL 8.5-10.5 PROTEIN, TOTAL (test code = 2229) 7.2 G/DL 6.1-8.3 ALBUMIN (test code = 2201) 4.2 G/DL 3.5-5.2 CALC GLOBULIN (test code = 2240) 3.0 G/DL 1.9-3.7 CALC A/G RATIO (test code = 2234) 1.4 RATIO 1.0-2.6 BILIRUBIN, TOTAL (test code = 2207) <0.2 MG/DL <=1.2 ALKALINE PHOSPHATASE (test code = 2204) 167 U/L 40-123 H AST (test code = 2218) 17 U/L 9-40 ALT (test code = 2219) 11 U/L 5-40 LIPID [id number] 05:08:23* Test Item Value Reference Range Interpretation Comme nts CHOLESTEROL (test code = 2210) 121 MG/DL <200 TRIGLYCERIDES (test code = 2232) 58 MG/DL <150 HDL CHOLESTEROL (test code = 2220) 46 MG/DL >39 CALC LDL CHOL (test code = 2237) 62 MG/DL <100 NOTE: CALCULATED LDL IS BASED ON WILI-CHA METHOD WHICHINCLUDES ADJUSTABLE TRIGLYCERIDE:VLDL CHOLESTEROL RATIO.THIS FACTOR VARIES BY MEASURED TRIGLYCERIDE AND NON-HDLCHOLESTEROL CONCENTRATIONS WITH INCREASED CALCULATED LDL SEENIN HIGHER TRIGLYCERIDE OR LOWER NON-HDL SPECIMENS. FOR MOREINFORMATION, SEE CLIENT ANNOUNCEMENT AT [email or web address] RISK RATIO LDL/HDL (test code = 2237) 1.35 RATIO <3.22 HEMOGLOBIN [id number] 04:32:13* Test Item Value Reference Range Interpretation Comme nts HEMOGLOBIN A1c (test code = 12201) 9.7 % 4.2-5.6 H [employer] GUIDELINES FOR HGB A1C: PREDIABETES/INCREASED RISK . . . . . . . 5.7-6.4% DIAGNOSIS OF DIABETES . . . . . . . . . >=6.5% WITH CONFIRMATION OR APPROPRIATE SYMPTOMS NOTE: ASSAY MAY BE AFFECTED BY HEMOGLOBINOPATHIES (SICKLE CELL ANEMIA, S-C DISEASE, OTHERS) OR ARTIFICIALLY LOWERED BY DECREASED RED CELL SURVIVAL (HEMOLYTIC ANEMIAS, BLOOD LOSS, ETC.). CONSIDER ALTERNATE TESTING OR LABORATORY CONSULTATION. COMPREHENSIVE METABOLIC [id number] 00:00:00* Test Item Value Reference Range Interpretation Comme nts GLUCOSE (test code = 2217) 263 MG/DL BUN (test code = 8) 22 MG/DL CREATININE (test code = 2214) 0.70 MG/DL eGFR (2020 CKD-EPI) (test code = 33453) 107 ML/MIN/1.73 CALC BUN/CREAT (test code = 2235) 31 RATIO SODIUM (test code = 2231) 133 MEQ/L POTASSIUM (test code = 2228) 4.4 MEQ/L CHLORIDE (test code = 2215) 97 MEQ/L CARBON DIOXIDE (test code = 2206) 26 MEQ/L CALCIUM (test code = 2209) 9.5 MG/DL PROTEIN, TOTAL (test code = 2229) 7.2 G/DL ALBUMIN (test code = 2201) 4.2 G/DL CALC GLOBULIN (test code = 2240) 3.0 G/DL CALC A/G RATIO (test code = 2234) 1.4 RATIO BILIRUBIN, TOTAL (test code = 2207) <0.2 MG/DL ALKALINE PHOSPHATASE (test code = 2204) 167 U/L AST (test code = 2218) 17 U/L ALT (test code = 2219) 11 U/L Mamadou MoserLIPID [id number] 00:00:00* Test Item Value Reference Range Interpretation Comme nts CHOLESTEROL (test code = 2210) 121 MG/DL TRIGLYCERIDES (test code = 2232) 58 MG/DL HDL CHOLESTEROL (test code = 2220) 46 MG/DL CALC LDL CHOL (test code = 2237) 62 MG/DL RISK RATIO LDL/HDL (test cod e = 2238) 1.35 RATIO Mamadou MoserHEMOGLOBIN [id number] 00:00:00* Test Item Value Reference Range Interpretation Comme nts HEMOGLOBIN A1c (test code = 43018) 9.7 % Mamadou MoserALBUMIN/CREATININE RATIO, RANDOM [id number] 00:00:00* Test Item Value Reference Range Interpretation Comme nts CREATININE, URINE, CONC. (te st code = 2072) 46.9 MG/DL ALBUMIN, URINE, RANDOM (test code = 19874) <0.2 MG/DL CALC ALBUMIN/CREAT, RND (cassi t code = 34468) <4 MG/G Mamadou MoserHEPATIC FUNCTION PANEL [ADDED]2024-02-26 00:00:00* Test Item Value Reference Range Interpretation Comme nts PROTEIN, TOTAL (test code = 2229) 7.6 G/DL ALBUMIN (test code = 2201) 4.7 G/DL BILIRUBIN, TOTAL (test code = 2207) 0.2 MG/DL BILIRUBIN, DIRECT (test code = 2021) 0.1 MG/DL ALKALINE PHOSPHATASE (test c ode = 2204) 145 U/L AST (test code = 2218) 22 U/L ALT (test code = 2219) 12 U/L Mamadou Babb AustinHEPATIC FUNCTION PANEL [ADDED]2024-02-26 00:00:00* Test Item Value Reference Range Interpretation Comme nts PROTEIN, TOTAL (test code = 2229) 7.6 G/DL ALBUMIN (test code = 2201) 4.7 G/DL BILIRUBIN, TOTAL (test code = 2207) 0.2 MG/DL BILIRUBIN, DIRECT (test code = 2021) 0.1 MG/DL ALKALINE PHOSPHATASE (test c ode = 2204) 145 U/L AST (test code = 2218) 22 U/L ALT (test code = 2219) 12 U/L Mamadou Babb AustinHEPATIC FUNCTION PANEL [ADDED]2024-02-26 00:00:00* Test Item Value Reference Range Interpretation Comme nts PROTEIN, TOTAL (test code = 2229) 7.6 G/DL ALBUMIN (test code = 2201) 4.7 G/DL BILIRUBIN, TOTAL (test code = 2207) 0.2 MG/DL BILIRUBIN, DIRECT (test code = 2021) 0.1 MG/DL ALKALINE PHOSPHATASE (test c ode = 2204) 145 U/L AST (test code = 2218) 22 U/L ALT (test code = 2219) 12 U/L Mamadou Babb AustinHEMOGLOBIN A1c [ADDED]2024-02-25 00:00:00* Test Item Value Reference Range Interpretation Comme nts HEMOGLOBIN A1c (test code = 24141) 7.7 % Mamadou F AustinHEMOGLOBIN A1c [ADDED]2024-02-25 00:00:00* Test Item Value Reference Range Interpretation Comme nts HEMOGLOBIN A1c (test code = 79438) 7.7 % Mamadou F AustinHEMOGLOBIN A1c [ADDED]2024-02-25 00:00:00* Test Item Value Reference Range Interpretation Comme nts HEMOGLOBIN A1c (test code = 76524) 7.7 % Mamadou F EhsanCOMPREHENSIVE METABOLIC [id number] 05:08:40* Test Item Value Reference Range Interpretation Comme nts GLUCOSE (test code = 2217) 185 MG/DL 70-99 H BUN (test code = 2208) 26 MG/DL 6-20 H CREATININE (test code = 2214) 0.70 MG/DL 0.60-1.30 eGFR (2020 CKD-EPI) (test code = ) 107 ML/MIN/1.73 >60 CALC BUN/CREAT (test code = 2234) 37 RATIO 6-28 H SODIUM (test code = 2230) 138 MEQ/L 133-146 POTASSIUM (test code = 2227) 4.4 MEQ/L 3.5-5.4 CHLORIDE (test code = 2214) 99 MEQ/L 95-107 CARBON DIOXIDE (test code = 2205) 26 MEQ/L 19-31 CALCIUM (test code = 2208) 10.1 MG/DL 8.5-10.5 PROTEIN, TOTAL (test code = 2228) 7.7 G/DL 6.1-8.3 ALBUMIN (test code = 2200) 5.1 G/DL 3.5-5.2 CALC GLOBULIN (test code = 2239) 2.6 G/DL 1.9-3.7 CALC A/G RATIO (test code = 2233) 2.0 RATIO 1.0-2.6 BILIRUBIN, TOTAL (test code = 2206) <0.2 MG/DL <=1.2 ALKALINE PHOSPHATASE (test code = 2203) 236 U/L 40-120 H AST (test code = 2217) 23 U/L 9-40 ALT (test code = 2219) 15 U/L 5-40 UNLESS OTHERWISE INDICATED, ALL TESTING PERFORMED AT [facility] [address] [place] [address] SERVER SECURITY ADMINISTRATOR: ANDREE MICHAEL M.D. CLIA NUMBER [id number] [facility] [place]. [id number] LIPID [id number] 05:08:40* Test Item Value Reference Range Interpretation Comme nts CHOLESTEROL (test code = 221) 149 MG/DL <200 TRIGLYCERIDES (test code = 2232) 98 MG/DL <150 HDL CHOLESTEROL (test code = 2220) 59 MG/DL >39 CALC LDL CHOL (test code = 2236) 72 MG/DL <100 NOTE: CALCULATED LDL IS BASED ON WILI-CHA METHOD WHICHINCLUDES ADJUSTABLE TRIGLYCERIDE:VLDL CHOLESTEROL RATIO.THIS FACTOR VARIES BY MEASURED TRIGLYCERIDE AND NON-HDLCHOLESTEROL CONCENTRATIONS WITH INCREASED CALCULATED LDL SEENIN HIGHER TRIGLYCERIDE OR LOWER NON-HDL SPECIMENS. FOR MOREINFORMATION, SEE CLIENT ANNOUNCEMENT AT [email or web address] RISK RATIO LDL/HDL (test code = 2238) 1.22 RATIO <3.22 HEMOGLOBIN [id number] 03:23:16* Test Item Value Reference Range Interpretation Comme [facility] HEMOGLOBIN A1c (test code = 49547) 8.2 % 4.2-5.6 H [employer]IATION GUIDELINES FOR HGB A1C: PREDIABETES/INCREASED RISK . . . . . . . 5.7-6.4% DIAGNOSIS OF DIABETES . . . . . . . . . >=6.5% WITH CONFIRMATION OR APPROPRIATE SYMPTOMS NOTE: ASSAY MAY BE AFFECTED BY HEMOGLOBINOPATHIES (SICKLE CELL ANEMIA, S-C DISEASE, OTHERS) OR ARTIFICIALLY LOWERED BY DECREASED RED CELL SURVIVAL (HEMOLYTIC ANEMIAS, BLOOD LOSS, ETC.). CONSIDER ALTERNATE TESTING OR LABORATORY CONSULTATION. LIPID [id number] 00:00:00* Test Item Value Reference Range Interpretation Comme nts CHOLESTEROL (test code = 2210) 149 MG/DL TRIGLYCERIDES (test code = 2232) 98 MG/DL HDL CHOLESTEROL (test code = 2220) 59 MG/DL CALC LDL CHOL (test code = 2237) 72 MG/DL RISK RATIO LDL/HDL (test cod e = 2238) 1.22 RATIO Mamadouhubert MoserCOMPREHENSIVE METABOLIC [id number] 00:00:00* Test Item Value Reference Range Interpretation Comme nts GLUCOSE (test code = 2217) 185 MG/DL BUN (test code = 2208) 26 MG/DL CREATININE (test code = 2214) 0.70 MG/DL eGFR (2020 CKD-EPI) (test code = 76333) 107 ML/MIN/1.73 CALC BUN/CREAT (test code = 2235) 37 RATIO SODIUM (test code = 2231) 138 MEQ/L POTASSIUM (test code = 2228) 4.4 MEQ/L CHLORIDE (test code = 2215) 99 MEQ/L CARBON DIOXIDE (test code = 2206) 26 MEQ/L CALCIUM (test code = 2209) 10.1 MG/DL PROTEIN, TOTAL (test code = 2229) 7.7 G/DL ALBUMIN (test code = 2201) 5.1 G/DL CALC GLOBULIN (test code = 2240) 2.6 G/DL CALC A/G RATIO (test code = 2234) 2.0 RATIO BILIRUBIN, TOTAL (test code = 2207) <0.2 MG/DL ALKALINE PHOSPHATASE (test code = 2204) 236 U/L AST (test code = 2218) 23 U/L ALT (test code = 2219) 15 U/L Mamadou MoserHEMOGLOBIN [id number] 00:00:00* Test Item Value Reference Range Interpretation Comme nts HEMOGLOBIN A1c (test code = 87926) 8.2 % Mamadou MoserLIPID [id number] 00:00:00* Test Item Value Reference Range Interpretation Comme nts CHOLESTEROL (test code = 2210) 149 MG/DL TRIGLYCERIDES (test code = 2232) 98 MG/DL HDL CHOLESTEROL (test code = 2220) 59 MG/DL CALC LDL CHOL (test code = 2237) 72 MG/DL RISK RATIO LDL/HDL (test cod e = 2238) 1.22 RATIO Mamadou MoserCOMPREHENSIVE METABOLIC [id number] 00:00:00* Test Item Value Reference Range Interpretation Comme nts GLUCOSE (test code = 2217) 185 MG/DL BUN (test code = 2208) 26 MG/DL CREATININE (test code = 2214) 0.70 MG/DL eGFR (2020 CKD-EPI) (test code = 17056) 107 ML/MIN/1.73 CALC BUN/CREAT (test code = 2235) 37 RATIO SODIUM (test code = 2231) 138 MEQ/L POTASSIUM (test code = 2228) 4.4 MEQ/L CHLORIDE (test code = 2215) 99 MEQ/L CARBON DIOXIDE (test code = 2206) 26 MEQ/L CALCIUM (test code = 2209) 10.1 MG/DL PROTEIN, TOTAL (test code = 2229) 7.7 G/DL ALBUMIN (test code = 2201) 5.1 G/DL CALC GLOBULIN (test code = 2240) 2.6 G/DL CALC A/G RATIO (test code = 2234) 2.0 RATIO BILIRUBIN, TOTAL (test code = 2207) <0.2 MG/DL ALKALINE PHOSPHATASE (test code = 2204) 236 U/L AST (test code = 2218) 23 U/L ALT (test code = 2219) 15 U/L Mamadou MoserHEMOGLOBIN [id number] 00:00:00* Test Item Value Reference Range Interpretation Comme nts HEMOGLOBIN A1c (test code = 86725) 8.2 % Mamadou Babb AustinLIPID [id number] 00:00:00* Test Item Value Reference Range Interpretation Comme nts CHOLESTEROL (test code = 2210) 149 MG/DL TRIGLYCERIDES (test code = 2232) 98 MG/DL HDL CHOLESTEROL (test code = 2220) 59 MG/DL CALC LDL CHOL (test code = 2237) 72 MG/DL RISK RATIO LDL/HDL (test cod e = 2238) 1.22 RATIO Mamadou MoserCOMPREHENSIVE METABOLIC [id number] 00:00:00* Test Item Value Reference Range Interpretation Comme nts GLUCOSE (test code = 2217) 185 MG/DL BUN (test code = 2208) 26 MG/DL CREATININE (test code = 2214) 0.70 MG/DL eGFR (2020 CKD-EPI) (test code = 12610) 107 ML/MIN/1.73 CALC BUN/CREAT (test code = 2235) 37 RATIO SODIUM (test code = 2231) 138 MEQ/L POTASSIUM (test code = 2228) 4.4 MEQ/L CHLORIDE (test code = 2215) 99 MEQ/L CARBON DIOXIDE (test code = 2206) 26 MEQ/L CALCIUM (test code = 2209) 10.1 MG/DL PROTEIN, TOTAL (test code = 2229) 7.7 G/DL ALBUMIN (test code = 2201) 5.1 G/DL CALC GLOBULIN (test code = 2240) 2.6 G/DL CALC A/G RATIO (test code = 2234) 2.0 RATIO BILIRUBIN, TOTAL (test code = 2207) <0.2 MG/DL ALKALINE PHOSPHATASE (test code = 2204) 236 U/L AST (test code = 2218) 23 U/L ALT (test code = 2219) 15 U/L Mamadou MoserHEMOGLOBIN [id number] 00:00:00* Test Item Value Reference Range Interpretation Comme nts HEMOGLOBIN A1c (test code = 56876) 8.2 % Mamadou MoserHEMOGLOBIN [id number] 05:33:50* Test Item Value Reference Range Interpretation Comme aleksandra HEMOGLOBIN A1c (test code = 57883) 8.6 % 4.2-5.6 H [employer] GUIDELINES FOR HGB A1C: PREDIABETES/INCREASED RISK . . . . . . . 5.7-6.4% DIAGNOSIS OF DIABETES . . . . . . . . . >=6.5% WITH CONFIRMATION OR APPROPRIATE SYMPTOMS NOTE: ASSAY MAY BE AFFECTED BY HEMOGLOBINOPATHIES (SICKLE CELL ANEMIA, S-C DISEASE, OTHERS) OR ARTIFICIALLY LOWERED BY DECREASED RED CELL SURVIVAL (HEMOLYTIC ANEMIAS, BLOOD LOSS, ETC.). CONSIDER ALTERNATE TESTING OR LABORATORY CONSULTATION. UNLESS OTHERWISE INDICATED, ALL TESTING PERFORMED AT [facility] [address] [place] [address] SERVER SECURITY ADMINISTRATOR: ANDREE MICHAEL M.D. [place] NUMBER [id number] [facility] [place]. [id number] HEMOGLOBIN [id number] 00:00:00* Test Item Value Reference Range Interpretation Comme [facility] HEMOGLOBIN A1c (test code = 15603) 8.6 % Mamadou Babb AustinHEMOGLOBIN [id number] 00:00:00* Test Item Value Reference Range Interpretation Comme [facility] HEMOGLOBIN A1c (test code = 58388) 8.6 % Mamadou Babb AustinHEMOGLOBIN [id number] 00:00:00* Test Item Value Reference Range Interpretation Comme [facility] HEMOGLOBIN A1c (test code = 37784) 8.6 % Mamadou Babb RanierHEMOGLOBIN [id number] 06:42:43* Test Item Value Reference Range Interpretation Comme [facility] HEMOGLOBIN A1c (test code = 20067) 8.4 % 4.2-5.6 H [employer] GUIDELINES FOR HGB A1C: PREDIABETES/INCREASED RISK . . . . . . . 5.7-6.4% DIAGNOSIS OF DIABETES . . . . . . . . . >=6.5% WITH CONFIRMATION OR APPROPRIATE SYMPTOMS NOTE: ASSAY MAY BE AFFECTED BY HEMOGLOBINOPATHIES (SICKLE CELL ANEMIA, S-C DISEASE, OTHERS) OR ARTIFICIALLY LOWERED BY DECREASED RED CELL SURVIVAL (HEMOLYTIC ANEMIAS, BLOOD LOSS, ETC.). CONSIDER ALTERNATE TESTING OR LABORATORY CONSULTATION. ALBUMIN/CREATININE RATIO, URINE, [id number] 04:30:10* Test Item Value Reference Range Interpretation Comme nts CREATININE, URINE, CONC. (test code = 2072) 45.2 MG/DL NOT ESTAB ALBUMIN, URINE, RANDOM (test code = 20216) 0.3 MG/DL NOT ESTAB CALC ALBUMIN/CREAT, RND (test code = 20637) 7 MG/G <30 Note: Albumin/Creatinine ratio reference interval reflects ADA and NKF guidelines. LIPID [id number] 03:55:48* Test Item Value Reference Range Interpretation Comme nts CHOLESTEROL (test code = 2210) 131 MG/DL <200 TRIGLYCERIDES (test code = 2232) 70 MG/DL <150 HDL CHOLESTEROL (test code = 2220) 52 MG/DL >39 CALC LDL CHOL (test code = 2237) 64 MG/DL <100 NOTE: CALCULATED LDL IS BASED ON WILI-CHA METHOD WHICHINCLUDES ADJUSTABLE TRIGLYCERIDE:VLDL CHOLESTEROL RATIO.THIS FACTOR VARIES BY MEASURED TRIGLYCERIDE AND NON-HDLCHOLESTEROL CONCENTRATIONS WITH INCREASED CALCULATED LDL SEENIN HIGHER TRIGLYCERIDE OR LOWER NON-HDL SPECIMENS. FOR MOREINFORMATION, SEE CLIENT ANNOUNCEMENT AT [email or web address]-[email or web address] RISK RATIO LDL/HDL (test code = 2238) 1.23 RATIO <3.22 UNLESS OTHERW ISE INDICATED, ALL TESTING PERFORMED AT [facility] [address] [place] [address] SERVER SECURITY ADMINISTRATOR: ANDREE MICHAEL M.D. CLIA NUMBER [id number] [facility] [place]. [id number] ALBUMIN/CREATININE RATIO, RANDOM [id number] 00:00:00* Test Item Value Reference Range Interpretation Comme nts CREATININE, URINE, CONC. (te st code = 2072) 45.2 MG/DL ALBUMIN, URINE, RANDOM (test code = 84598) 0.3 MG/DL CALC ALBUMIN/CREAT, RND (cassi t code = 71810) 7 MG/G Mamadou Babb AustinLIPID [id number] 00:00:00* Test Item Value Reference Range Interpretation Comme nts CHOLESTEROL (test code = 2210) 131 MG/DL TRIGLYCERIDES (test code = 2232) 70 MG/DL HDL CHOLESTEROL (test code = 2220) 52 MG/DL CALC LDL CHOL (test code = 2237) 64 MG/DL RISK RATIO LDL/HDL (test cod e = 2238) 1.23 RATIO Mamadou MoserHEMOGLOBIN [id number] 00:00:00* Test Item Value Reference Range Interpretation Comme nts HEMOGLOBIN A1c (test code = 31112) 8.4 % Mamadou Babb AustinALBUMIN/CREATININE RATIO, RANDOM [id number] 00:00:00* Test Item Value Reference Range Interpretation Comme nts CREATININE, URINE, CONC. (te st code = 207) 45.2 MG/DL ALBUMIN, URINE, RANDOM (test code = 77925) 0.3 MG/DL CALC ALBUMIN/CREAT, RND (cassi t code = 52630) 7 MG/G Mamadou Babb AustinLIPID [id number] 00:00:00* Test Item Value Reference Range Interpretation Comme nts CHOLESTEROL (test code = 2210) 131 MG/DL TRIGLYCERIDES (test code = 2232) 70 MG/DL HDL CHOLESTEROL (test code = 2220) 52 MG/DL CALC LDL CHOL (test code = 2237) 64 MG/DL RISK RATIO LDL/HDL (test cod e = 2238) 1.23 RATIO Mamadou Babb AustinHEMOGLOBIN [id number] 00:00:00* Test Item Value Reference Range Interpretation Comme nts HEMOGLOBIN A1c (test code = 32620) 8.4 % Mamadou Babb AustinALBUMIN/CREATININE RATIO, RANDOM [id number] 00:00:00* Test Item Value Reference Range Interpretation Comme nts CREATININE, URINE, CONC. (te st code = 207) 45.2 MG/DL ALBUMIN, URINE, RANDOM (test code = 68684) 0.3 MG/DL CALC ALBUMIN/CREAT, RND (cassi t code = 69599) 7 MG/G Mamadou Babb AustinLIPID [id number] 00:00:00* Test Item Value Reference Range Interpretation Comme nts CHOLESTEROL (test code = 2210) 131 MG/DL TRIGLYCERIDES (test code = 2232) 70 MG/DL HDL CHOLESTEROL (test code = 2220) 52 MG/DL CALC LDL CHOL (test code = 2237) 64 MG/DL RISK RATIO LDL/HDL (test cod e = 2238) 1.23 RATIO Mamadou Babb AustinHEMOGLOBIN [id number] 00:00:00* Test Item Value Reference Range Interpretation Comme nts HEMOGLOBIN A1c (test code = 09393) 8.4 % Mamadou MoserCOMPREHENSIVE METABOLIC [id number] 05:57:55* Test Item Value Reference Range Interpretation Comme nts GLUCOSE (test code = 2217) 101 MG/DL 70-99 H BUN (test code = 2208) 22 MG/DL 6-20 H CREATININE (test code = 2213) 0.81 MG/DL 0.60-1.30 eGFR (2020 CKD-EPI) (test code = ) 91 ML/MIN/1.73 >60 CALC BUN/CREAT (test code = 2234) 27 RATIO 6-28 SODIUM (test code = 2230) 137 MEQ/L 133-146 POTASSIUM (test code = 2227) 4.7 MEQ/L 3.5-5.4 CHLORIDE (test code = 2214) 99 MEQ/L 95-107 CARBON DIOXIDE (test code = 2205) 25 MEQ/L 19-31 CALCIUM (test code = 2208) 10.2 MG/DL 8.5-10.5 PROTEIN, TOTAL (test code = 2228) 7.6 G/DL 6.1-8.3 ALBUMIN (test code = 2200) 4.7 G/DL 3.5-5.2 CALC GLOBULIN (test code = 2239) 2.9 G/DL 1.9-3.7 CALC A/G RATIO (test code = 2233) 1.6 RATIO 1.0-2.6 BILIRUBIN, TOTAL (test code = 2206) 0.3 MG/DL See_Comment [Automated me ssage] The system which generated this result transmitted reference range: <=1.2. The reference range was not used to interpret this result as normal/abnormal. ALKALINE PHOSPHATASE (test code = 2203) 124 U/L 40-118 H AST (test code = 2217) 19 U/L 9-40 ALT (test code = 2218) 10 U/L 5-40 UNLESS OTHERWISE INDICATED, ALL TESTING PERFORMED [facility] [address] [place] [id number] SERVER SECURITY ADMINISTRATOR: AUDI OTTO M.D. CLIA NUMBER [id number] [facility] [place]. [id number] HEMOGLOBIN [id number] 03:49:44* Test Item Value Reference Range Interpretation Comme nts HEMOGLOBIN A1c (test code = 31112) 7.7 % 4.2-5.6 H [employer] GUIDELINES FOR HGB A1C: PREDIABETES/INCREASED RISK . . . . . . . 5.7-6.4% DIAGNOSIS OF DIABETES . . . . . . . . . >=6.5% WITH CONFIRMATION OR APPROPRIATE SYMPTOMS NOTE: ASSAY MAY BE AFFECTED BY HEMOGLOBINOPATHIES (SICKLE CELL ANEMIA, S-C DISEASE, OTHERS) OR ARTIFICIALLY LOWERED BY DECREASED RED CELL SURVIVAL (HEMOLYTIC ANEMIAS, BLOOD LOSS, ETC.). CONSIDER ALTERNATE TESTING OR LABORATORY CONSULTATION. COMPREHENSIVE METABOLIC [id number] 00:00:00* Test Item Value Reference Range Interpretation Comme nts GLUCOSE (test code = 2217) 101 MG/DL BUN (test code = 2208) 22 MG/DL CREATININE (test code = 2214) 0.81 MG/DL eGFR (2020 CKD-EPI) (test co de = 61685) 91 ML/MIN/1.73 CALC BUN/CREAT (test code = 2235) 27 RATIO SODIUM (test code = 2231) 137 MEQ/L POTASSIUM (test code = 2228) 4.7 MEQ/L CHLORIDE (test code = 2215) 99 MEQ/L CARBON DIOXIDE (test code = 2206) 25 MEQ/L CALCIUM (test code = 2209) 10.2 MG/DL PROTEIN, TOTAL (test code = 2229) 7.6 G/DL ALBUMIN (test code = 2201) 4.7 G/DL CALC GLOBULIN (test code = 2240) 2.9 G/DL CALC A/G RATIO (test code = 2234) 1.6 RATIO BILIRUBIN, TOTAL (test code = 2207) 0.3 MG/DL ALKALINE PHOSPHATASE (test code = 2204) 124 U/L AST (test code = 2218) 19 U/L ALT (test code = 2219) 10 U/L Mamadou Babb AustinHEMOGLOBIN [id number] 00:00:00* Test Item Value Reference Range Interpretation Comme nts HEMOGLOBIN A1c (test code = 88305) 7.7 % Mamadou Babb AustinCOMPREHENSIVE METABOLIC [id number] 00:00:00* Test Item Value Reference Range Interpretation Comme nts GLUCOSE (test code = 2217) 101 MG/DL BUN (test code = 2208) 22 MG/DL CREATININE (test code = 2214) 0.81 MG/DL eGFR (2020 CKD-EPI) (test co de = 40000) 91 ML/MIN/1.73 CALC BUN/CREAT (test code = 2235) 27 RATIO SODIUM (test code = 2231) 137 MEQ/L POTASSIUM (test code = 2228) 4.7 MEQ/L CHLORIDE (test code = 2215) 99 MEQ/L CARBON DIOXIDE (test code = 2206) 25 MEQ/L CALCIUM (test code = 2209) 10.2 MG/DL PROTEIN, TOTAL (test code = 2229) 7.6 G/DL ALBUMIN (test code = 2201) 4.7 G/DL CALC GLOBULIN (test code = 2240) 2.9 G/DL CALC A/G RATIO (test code = 2234) 1.6 RATIO BILIRUBIN, TOTAL (test code = 2207) 0.3 MG/DL ALKALINE PHOSPHATASE (test code = 2204) 124 U/L AST (test code = 2218) 19 U/L ALT (test code = 2219) 10 U/L Mamadou Babb AustinHEMOGLOBIN [id number] 00:00:00* Test Item Value Reference Range Interpretation Comme nts HEMOGLOBIN A1c (test code = 51101) 7.7 % Mamadou MoserCOMPREHENSIVE METABOLIC [id number] 00:00:00* Test Item Value Reference Range Interpretation Comme nts GLUCOSE (test code = 2217) 101 MG/DL BUN (test code = 2208) 22 MG/DL CREATININE (test code = 2214) 0.81 MG/DL eGFR (2020 CKD-EPI) (test co de = 25471) 91 ML/MIN/1.73 CALC BUN/CREAT (test code = 2235) 27 RATIO SODIUM (test code = 2231) 137 MEQ/L POTASSIUM (test code = 2228) 4.7 MEQ/L CHLORIDE (test code = 2215) 99 MEQ/L CARBON DIOXIDE (test code = 2206) 25 MEQ/L CALCIUM (test code = 2209) 10.2 MG/DL PROTEIN, TOTAL (test code = 2229) 7.6 G/DL ALBUMIN (test code = 2201) 4.7 G/DL CALC GLOBULIN (test code = 2240) 2.9 G/DL CALC A/G RATIO (test code = 2234) 1.6 RATIO BILIRUBIN, TOTAL (test code = 2207) 0.3 MG/DL ALKALINE PHOSPHATASE (test code = 2204) 124 U/L AST (test code = 2218) 19 U/L ALT (test code = 2219) 10 U/L Mamadou Babb AustinHEMOGLOBIN [id number] 00:00:00* Test Item Value Reference Range Interpretation Comme nts HEMOGLOBIN A1c (test code = 10654) 7.7 % [facility]FF WITH [id number] 09:11:51* Test Item Value Reference Range Interpretation Comme nts WBC (test code = 1001) 8.2 K/UL 3.5-11.0 RBC (test code = 1002) 4.02 M/UL 3.80-5.40 HEMOGLOBIN (test code = 1003) 11.6 G/DL 11.5-15.5 HEMATOCRIT (test code = 1004) 35.5 % 34.0-45.0 MCV (test code = 1005) 88.3 fL 80.0-99.0 MCH (test code = 1006) 28.9 PG 25.0-33.0 MCHC (test code = 1007) 32.7 G/DL 31.0-36.0 RDW (test code = 1038) 11.9 % 11.5-15.0 NEUTROPHILS (test code = 1008) 56.0 % LYMPHOCYTES (test code = 1010) 31.0 % MONOCYTES (test code = 1011) 7.7 % EOSINOPHILS (test code = 1012) 4.5 % BASOPHILS (test code = 1013) 0.7 % IMMATURE GRANULOCYTES (test code = 1036) 0.1 % NUCLEATED RBCS (test code = 1065) 0.0 /100 WBC'S See_Comment [Automated [employer] ge] The system which generated this result transmitted reference range: 0.0. The reference range was not used to interpret this result as normal/abnormal. PLATELET COUNT (test code = 1015) 254 K/UL 130-400 ABSOLUTE NEUTROPHILS (test code = 1066) 4.59 K/UL 1.50-7.50 ABSOLUTE LYMPHOCYTES (test code = 1067) 2.54 K/UL 1.00-4.00 ABSOLUTE MONOCYTES (test code = 1068) 0.63 K/UL 0.20-1.00 ABSOLUTE EOSINOPHILS (test code = 1040) 0.37 K/UL 0.00-0.50 ABSOLUTE BASOPHILS (test code = 1069) 0.06 K/UL 0.00-0.20 ABS IMMATURE GRANULOCYTES (test code = 1020) 0.01 K/UL 0.00-0.10 ABS NUCLEATED RBCS (test code = 83481) 0.00 K/UL 0.00-0.11 TSH, THIRD [id number] 05:20:20* Test Item Value Reference Range Interpretation Comme nts TSH, THIRD GENERATION (test code = 2821) 2.890 UIU/ML 0.400-4.100 UNLESS OTHERWISE INDICATED, ALL TESTING PERFORMED [facility] [employer] [address] [place] [address] SERVER SECURITY ADMINISTRATOR: AUDI OTTO M.D. CLIA NUMBER [id number] [facility] [place]. [id number] TSH, THIRD GENERATION [ADDED]2022-03-05 00:00:00* Test Item Value Reference Range Interpretation Comme nts TSH, THIRD GENERATION (test code = 2821) 2.890 UIU/ML Mamadou F EhsanCBC W/AUTO DIFF WITH PLATELETS [ADDED]2022-03-05 00:00:00* Test Item Value Reference Range Interpretation Comme nts WBC (test code = 1001) 8.2 K/UL RBC (test code = 1002) 4.02 M/UL HEMOGLOBIN (test code = 1003) 11.6 G/DL HEMATOCRIT (test code = 1004) 35.5 % MCV (test code = 1005) 88.3 fL MCH (test code = 1006) 28.9 PG MCHC (test code = 1007) 32.7 G/DL RDW (test code = 1038) 11.9 % NEUTROPHILS (test code = 1008) 56.0 % LYMPHOCYTES (test code = 1010) 31.0 % MONOCYTES (test code = 1011) 7.7 % EOSINOPHILS (test code = 1012) 4.5 % BASOPHILS (test code = 1013) 0.7 % IMMATURE GRANULOCYTES (test code = 1036) 0.1 % NUCLEATED RBCS (test code = 1065) 0.0 /100WBC'S PLATELET COUNT (test code = 1015) 254 K/UL ABSOLUTE NEUTROPHILS (test c ode = 1066) 4.59 K/UL ABSOLUTE LYMPHOCYTES (test c ode = 1067) 2.54 K/UL ABSOLUTE MONOCYTES (test cod e = 1068) 0.63 K/UL ABSOLUTE EOSINOPHILS (test c ode = 1040) 0.37 K/UL ABSOLUTE BASOPHILS (test cod e = 1069) 0.06 K/UL ABS IMMATURE GRANULOCYTES (t est code = 1020) 0.01 K/UL ABS NUCLEATED RBCS (test cod e = 71346) 0.00 K/UL Mamadou Estrada, THIRD GENERATION [ADDED]2022-03-05 00:00:00* Test Item Value Reference Range Interpretation Comme nts TSH, THIRD GENERATION (test code = 2821) 2.890 UIU/ML Mamadou MoserCBC W/AUTO DIFF WITH PLATELETS [ADDED]2022-03-05 00:00:00* Test Item Value Reference Range Interpretation Comme nts WBC (test code = 1001) 8.2 K/UL RBC (test code = 1002) 4.02 M/UL HEMOGLOBIN (test code = 1003) 11.6 G/DL HEMATOCRIT (test code = 1004) 35.5 % MCV (test code = 1005) 88.3 fL MCH (test code = 1006) 28.9 PG MCHC (test code = 1007) 32.7 G/DL RDW (test code = 1038) 11.9 % NEUTROPHILS (test code = 1008) 56.0 % LYMPHOCYTES (test code = 1010) 31.0 % MONOCYTES (test code = 1011) 7.7 % EOSINOPHILS (test code = 1012) 4.5 % BASOPHILS (test code = 1013) 0.7 % IMMATURE GRANULOCYTES (test code = 1036) 0.1 % NUCLEATED RBCS (test code = 1065) 0.0 /100WBC'S PLATELET COUNT (test code = 1015) 254 K/UL ABSOLUTE NEUTROPHILS (test c ode = 1066) 4.59 K/UL ABSOLUTE LYMPHOCYTES (test c ode = 1067) 2.54 K/UL ABSOLUTE MONOCYTES (test cod e = 1068) 0.63 K/UL ABSOLUTE EOSINOPHILS (test c ode = 1040) 0.37 K/UL ABSOLUTE BASOPHILS (test cod e = 1069) 0.06 K/UL ABS IMMATURE GRANULOCYTES (t est code = 1020) 0.01 K/UL ABS NUCLEATED RBCS (test cod e = 95851) 0.00 K/UL Mamadou Estrada, THIRD GENERATION [ADDED]2022-03-05 00:00:00* Test Item Value Reference Range Interpretation Comme nts TSH, THIRD GENERATION (test code = 2821) 2.890 UIU/ML Mamadou MoserCBC W/AUTO DIFF WITH PLATELETS [ADDED]2022-03-05 00:00:00* Test Item Value Reference Range Interpretation Comme nts WBC (test code = 1001) 8.2 K/UL RBC (test code = 1002) 4.02 M/UL HEMOGLOBIN (test code = 1003) 11.6 G/DL HEMATOCRIT (test code = 1004) 35.5 % MCV (test code = 1005) 88.3 fL MCH (test code = 1006) 28.9 PG MCHC (test code = 1007) 32.7 G/DL RDW (test code = 1038) 11.9 % NEUTROPHILS (test code = 1008) 56.0 % LYMPHOCYTES (test code = 1010) 31.0 % MONOCYTES (test code = 1011) 7.7 % EOSINOPHILS (test code = 1012) 4.5 % BASOPHILS (test code = 1013) 0.7 % IMMATURE GRANULOCYTES (test code = 1036) 0.1 % NUCLEATED RBCS (test code = 1065) 0.0 /100WBC'S PLATELET COUNT (test code = 1015) 254 K/UL ABSOLUTE NEUTROPHILS (test c ode = 1066) 4.59 K/UL ABSOLUTE LYMPHOCYTES (test c ode = 1067) 2.54 K/UL ABSOLUTE MONOCYTES (test cod e = 1068) 0.63 K/UL ABSOLUTE EOSINOPHILS (test c ode = 1040) 0.37 K/UL ABSOLUTE BASOPHILS (test cod e = 1069) 0.06 K/UL ABS IMMATURE GRANULOCYTES (t est code = 1020) 0.01 K/UL ABS NUCLEATED RBCS (test cod e = 43744) 0.00 K/UL CBC W/AUTO DIFF WITH PLATELETS [ADDED]2022-03-05 00:00:00* Test Item Value Reference Range Interpretation Comme nts WBC (test code = 1001) 8.2 K/UL RBC (test code = 1002) 4.02 M/UL HEMOGLOBIN (test code = 1003) 11.6 G/DL HEMATOCRIT (test code = 1004) 35.5 % MCV (test code = 1005) 88.3 fL MCH (test code = 1006) 28.9 PG MCHC (test code = 1007) 32.7 G/DL RDW (test code = 1038) 11.9 % NEUTROPHILS (test code = 1008) 56.0 % LYMPHOCYTES (test code = 1010) 31.0 % MONOCYTES (test code = 1011) 7.7 % EOSINOPHILS (test code = 1012) 4.5 % BASOPHILS (test code = 1013) 0.7 % IMMATURE GRANULOCYTES (test code = 1036) 0.1 % NUCLEATED RBCS (test code = 1065) 0.0 /100WBC'S PLATELET COUNT (test code = 1015) 254 K/UL ABSOLUTE NEUTROPHILS (test c ode = 1066) 4.59 K/UL ABSOLUTE LYMPHOCYTES (test c ode = 1067) 2.54 K/UL ABSOLUTE MONOCYTES (test cod e = 1068) 0.63 K/UL ABSOLUTE EOSINOPHILS (test c ode = 1040) 0.37 K/UL ABSOLUTE BASOPHILS (test cod e = 1069) 0.06 K/UL ABS IMMATURE GRANULOCYTES (t est code = 1020) 0.01 K/UL ABS NUCLEATED RBCS (test cod e = 80250) 0.00 K/UL Mamadou Estrada, THIRD GENERATION [ADDED]2022-03-05 00:00:00* Test Item Value Reference Range Interpretation Comme nts TSH, THIRD GENERATION (test code = 2821) 2.890 UIU/ML ALBUMIN/CREATININE RATIO, URINE, [id number] 04:35:30* Test Item Value Reference Range Interpretation Comme nts CREATININE, URINE, RANDOM (test code = 2072) 106.9 MG/DL NOT ESTAB ALBUMIN, URINE, RANDOM (test code = 55195) 0.4 MG/DL NOT ESTAB CALC ALBUMIN/CREAT, RND (test code = 15771) 4 MG/G <30 Note: Albumin/Creatinine ratio reference interval reflects ADA and NKF guidelines. HIV 1/2 4TH GEN, RFLX [id number] 04:33:36* Test Item Value Reference Range Interpretation Comme nts HIV 1/2 4TH GEN, RFLX CONF (test code = 3514) NON-REACTIVE NON-REACTIVE UNLESS OTHERWISE INDICATED, ALL TESTING PERFORMED [facility] [employer] [address] [place] [address] SERVER SECURITY ADMINISTRATOR: AUDI OTTO M.D. CLIA NUMBER [id number] [place]. [id number] MICROALBUMIN/CREATININE, RANDOM AND [id number] 00:00:00* Test Item Value Reference Range Interpretation Comme nts CREATININE, URINE, RANDOM (t est code = 2071) 106.9 MG/DL ALBUMIN, URINE, RANDOM (test code = 37591) 0.4 MG/DL CALC ALBUMIN/CREAT, RND (cassi t code = 61623) 4 MG/G Mamadou F AustinHIV AB/AG COMBO RFLX [id number] 00:00:00* Test Item Value Reference Range Interpretation Comme nts HIV 1/2 4TH GEN, RFLX CONF ( test code = 3514) NON-REACTIVE Mamadou F AustinMICROALBUMIN/CREATININE, RANDOM AND [id number] 00:00:00* Test Item Value Reference Range Interpretation Comme nts CREATININE, URINE, RANDOM (t est code = 2071) 106.9 MG/DL ALBUMIN, URINE, RANDOM (test code = 21360) 0.4 MG/DL CALC ALBUMIN/CREAT, RND (cassi t code = 97929) 4 MG/G Mamadou F AustinHIV AB/AG COMBO RFLX [id number] 00:00:00* Test Item Value Reference Range Interpretation Comme nts HIV 1/2 4TH GEN, RFLX CONF ( test code = 3514) NON-REACTIVE Mamadou F AustinMICROALBUMIN/CREATININE, RANDOM AND [id number] 00:00:00* Test Item Value Reference Range Interpretation Comme nts CREATININE, URINE, RANDOM (t est code = 2071) 106.9 MG/DL ALBUMIN, URINE, RANDOM (test code = 87892) 0.4 MG/DL CALC ALBUMIN/CREAT, RND (cassi t code = 50645) 4 MG/G Mamadou F AustinHIV AB/AG COMBO RFLX [id number] 00:00:00* Test Item Value Reference Range Interpretation Comme nts HIV 1/2 4TH GEN, RFLX CONF ( test code = 3514) NON-REACTIVE Mamadou F AustinMICROALBUMIN/CREATININE, RANDOM AND [id number] 00:00:00* Test Item Value Reference Range Interpretation Comme nts CREATININE, URINE, RANDOM (t est code = 2071) 106.9 MG/DL ALBUMIN, URINE, RANDOM (test code = 72704) 0.4 MG/DL CALC ALBUMIN/CREAT, RND (cassi t code = 23842) 4 MG/G HIV AB/AG COMBO RFLX [id number] 00:00:00* Test Item Value Reference Range Interpretation Comme [facility] HIV 1/2 4TH GEN, RFLX CONF ( test code = 3514) NON-REACTIVE HEMOGLOBIN [id number] 21:25:09* Test Item Value Reference Range Interpretation Comme [facility] HEMOGLOBIN A1c (test code = 79806) 7.4 % 4.2-5.6 H [employer] GUIDELINES FOR HGB A1C: PREDIABETES/INCREASED RISK . . . . . . . 5.7-6.4% DIAGNOSIS OF DIABETES . . . . . . . . . >=6.5% WITH CONFIRMATION OR APPROPRIATE SYMPTOMS NOTE: ASSAY MAY BE AFFECTED BY HEMOGLOBINOPATHIES (SICKLE CELL ANEMIA, S-C DISEASE, OTHERS) OR ARTIFICIALLY LOWERED BY DECREASED RED CELL SURVIVAL (HEMOLYTIC ANEMIAS, BLOOD LOSS, ETC.). CONSIDER ALTERNATE TESTING OR LABORATORY CONSULTATION. COMPREHENSIVE METABOLIC [id number] 02:45:51* Test Item Value Reference Range Interpretation Comme nts GLUCOSE (test code = 2217) 112 MG/DL 70-99 H BUN (test code = 8) 23 MG/DL 6-20 H CREATININE (test code = 2214) 0.72 MG/DL 0.60-1.30 eGFR (2020 CKD-EPI) (test code = 18378) 105 ML/MIN/1.73 >60 CALC BUN/CREAT (test code = 2235) 32 RATIO 6-28 H SODIUM (test code = 223) 139 MEQ/L 133-146 POTASSIUM (test code = 2228) 4.7 MEQ/L 3.5-5.4 CHLORIDE (test code = 2215) 101 MEQ/L 95-107 CARBON DIOXIDE (test code = 2206) 20 MEQ/L 19-31 CALCIUM (test code = 2209) 9.8 MG/DL 8.5-10.5 PROTEIN, TOTAL (test code = 222) 7.2 G/DL 6.1-8.3 ALBUMIN (test code = 2201) 4.3 G/DL 3.5-5.2 CALC GLOBULIN (test code = 2240) 2.9 G/DL 1.9-3.7 CALC A/G RATIO (test code = 2234) 1.5 RATIO 1.0-2.6 BILIRUBIN, TOTAL (test code = 2207) <0.2 MG/DL See_Comment [Automated me ssage] The system which generated this result transmitted reference range: <=1.2. The reference range was not used to interpret this result as normal/abnormal. ALKALINE PHOSPHATASE (test code = 2204) 121 U/L 40-116 H AST (test code = 2218) 16 U/L 9-40 ALT (test code = 221) 9 U/L 5-40 LIPID [id number] 02:45:51* Test Item Value Reference Range Interpretation Comme nts CHOLESTEROL (test code = 2210) 118 MG/DL <200 TRIGLYCERIDES (test code = 2232) 59 MG/DL <150 HDL CHOLESTEROL (test code = 2220) 48 MG/DL >39 CALC LDL CHOL (test code = 2237) 56 MG/DL <100 NOTE: CALCULATED LDL IS BASED ON WILI-CHA METHOD WHICHINCLUDES ADJUSTABLE TRIGLYCERIDE:VLDL CHOLESTEROL RATIO.THIS FACTOR VARIES BY MEASURED TRIGLYCERIDE AND NON-HDLCHOLESTEROL CONCENTRATIONS WITH INCREASED CALCULATED LDL SEENIN HIGHER TRIGLYCERIDE OR LOWER NON-HDL SPECIMENS. FOR MOREINFORMATION, SEE CLIENT ANNOUNCEMENT AT [email or web address] RISK RATIO LDL/HDL (test code = 223) 1.17 RATIO <3.22 COMPREHENSIVE METABOLIC [id number] 00:00:00* Test Item Value Reference Range Interpretation Comme nts GLUCOSE (test code = 2217) 112 MG/DL BUN (test code = 8) 23 MG/DL CREATININE (test code = 2214) 0.72 MG/DL eGFR (2020 CKD-EPI) (test code = 07044) 105 ML/MIN/1.73 CALC BUN/CREAT (test code = 2235) 32 RATIO SODIUM (test code = 223) 139 MEQ/L POTASSIUM (test code = 2228) 4.7 MEQ/L CHLORIDE (test code = 2215) 101 MEQ/L CARBON DIOXIDE (test code = 2206) 20 MEQ/L CALCIUM (test code = 2209) 9.8 MG/DL PROTEIN, TOTAL (test code = 222) 7.2 G/DL ALBUMIN (test code = 220) 4.3 G/DL CALC GLOBULIN (test code = 2240) 2.9 G/DL CALC A/G RATIO (test code = 2234) 1.5 RATIO BILIRUBIN, TOTAL (test code = 2207) <0.2 MG/DL ALKALINE PHOSPHATASE (test code = 2204) 121 U/L AST (test code = 2218) 16 U/L ALT (test code = 2219) 9 U/L Mamadou Babb AustinLIPID [id number] 00:00:00* Test Item Value Reference Range Interpretation Comme nts CHOLESTEROL (test code = 2210) 118 MG/DL TRIGLYCERIDES (test code = 2232) 59 MG/DL HDL CHOLESTEROL (test code = 2220) 48 MG/DL CALC LDL CHOL (test code = 2237) 56 MG/DL RISK RATIO LDL/HDL (test cod e = 2238) 1.17 RATIO Mamadou MoserHEMOGLOBIN [id number] 00:00:00* Test Item Value Reference Range Interpretation Comme nts HEMOGLOBIN A1c (test code = 10545) 7.4 % Mamadou MoserCOMPREHENSIVE METABOLIC [id number] 00:00:00* Test Item Value Reference Range Interpretation Comme nts GLUCOSE (test code = 2217) 112 MG/DL BUN (test code = 2208) 23 MG/DL CREATININE (test code = 2214) 0.72 MG/DL eGFR (2020 CKD-EPI) (test code = 64357) 105 ML/MIN/1.73 CALC BUN/CREAT (test code = 2235) 32 RATIO SODIUM (test code = 2231) 139 MEQ/L POTASSIUM (test code = 2228) 4.7 MEQ/L CHLORIDE (test code = 2215) 101 MEQ/L CARBON DIOXIDE (test code = 2206) 20 MEQ/L CALCIUM (test code = 2209) 9.8 MG/DL PROTEIN, TOTAL (test code = 2229) 7.2 G/DL ALBUMIN (test code = 2201) 4.3 G/DL CALC GLOBULIN (test code = 2240) 2.9 G/DL CALC A/G RATIO (test code = 2234) 1.5 RATIO BILIRUBIN, TOTAL (test code = 2207) <0.2 MG/DL ALKALINE PHOSPHATASE (test code = 2204) 121 U/L AST (test code = 2218) 16 U/L ALT (test code = 2219) 9 U/L Mamadou Babb AustinLIPID [id number] 00:00:00* Test Item Value Reference Range Interpretation Comme nts CHOLESTEROL (test code = 2210) 118 MG/DL TRIGLYCERIDES (test code = 2232) 59 MG/DL HDL CHOLESTEROL (test code = 2220) 48 MG/DL CALC LDL CHOL (test code = 2237) 56 MG/DL RISK RATIO LDL/HDL (test cod e = 2238) 1.17 RATIO Mamadou MoserHEMOGLOBIN [id number] 00:00:00* Test Item Value Reference Range Interpretation Comme nts HEMOGLOBIN A1c (test code = 62725) 7.4 % Mamadou MoserCOMPREHENSIVE METABOLIC [id number] 00:00:00* Test Item Value Reference Range Interpretation Comme nts GLUCOSE (test code = 2217) 112 MG/DL BUN (test code = 2208) 23 MG/DL CREATININE (test code = 2214) 0.72 MG/DL eGFR (2020 CKD-EPI) (test code = 18015) 105 ML/MIN/1.73 CALC BUN/CREAT (test code = 2235) 32 RATIO SODIUM (test code = 2231) 139 MEQ/L POTASSIUM (test code = 2228) 4.7 MEQ/L CHLORIDE (test code = 2215) 101 MEQ/L CARBON DIOXIDE (test code = 2206) 20 MEQ/L CALCIUM (test code = 2209) 9.8 MG/DL PROTEIN, TOTAL (test code = 2229) 7.2 G/DL ALBUMIN (test code = 2201) 4.3 G/DL CALC GLOBULIN (test code = 2240) 2.9 G/DL CALC A/G RATIO (test code = 2234) 1.5 RATIO BILIRUBIN, TOTAL (test code = 2207) <0.2 MG/DL ALKALINE PHOSPHATASE (test code = 2204) 121 U/L AST (test code = 2218) 16 U/L ALT (test code = 2219) 9 U/L Mamadou MoserLIPID [id number] 00:00:00* Test Item Value Reference Range Interpretation Comme nts CHOLESTEROL (test code = 2210) 118 MG/DL TRIGLYCERIDES (test code = 2232) 59 MG/DL HDL CHOLESTEROL (test code = 2220) 48 MG/DL CALC LDL CHOL (test code = 2237) 56 MG/DL RISK RATIO LDL/HDL (test cod e = 2238) 1.17 RATIO Mamadou MoserHEMOGLOBIN [id number] 00:00:00* Test Item Value Reference Range Interpretation Comme nts HEMOGLOBIN A1c (test code = 36040) 7.4 % HEMOGLOBIN [id number] 00:00:00* Test Item Value Reference Range Interpretation Comme nts HEMOGLOBIN A1c (test code = 97123) 7.4 % Mamadou MoserCOMPREHENSIVE METABOLIC [id number] 00:00:00* Test Item Value Reference Range Interpretation Comme nts GLUCOSE (test code = 2217) 112 MG/DL BUN (test code = 2208) 23 MG/DL CREATININE (test code = 2214) 0.72 MG/DL eGFR (2020 CKD-EPI) (test code = 70709) 105 ML/MIN/1.73 CALC BUN/CREAT (test code = 2235) 32 RATIO SODIUM (test code = 2231) 139 MEQ/L POTASSIUM (test code = 2228) 4.7 MEQ/L CHLORIDE (test code = 2215) 101 MEQ/L CARBON DIOXIDE (test code = 2206) 20 MEQ/L CALCIUM (test code = 2209) 9.8 MG/DL PROTEIN, TOTAL (test code = 2229) 7.2 G/DL ALBUMIN (test code = 2201) 4.3 G/DL CALC GLOBULIN (test code = 2240) 2.9 G/DL CALC A/G RATIO (test code = 2234) 1.5 RATIO BILIRUBIN, TOTAL (test code = 2207) <0.2 MG/DL ALKALINE PHOSPHATASE (test code = 2204) 121 U/L AST (test code = 2218) 16 U/L ALT (test code = 2219) 9 U/L LIPID [id number] 00:00:00* Test Item Value Reference Range Interpretation Comme nts CHOLESTEROL (test code = 2210) 118 MG/DL TRIGLYCERIDES (test code = 2232) 59 MG/DL HDL CHOLESTEROL (test code = 2220) 48 MG/DL CALC LDL CHOL (test code = 2237) 56 MG/DL RISK RATIO LDL/HDL (test cod e = 2238) 1.17 RATIO HEMOGLOBIN [id number] 00:00:00* Test Item Value Reference Range Interpretation Comme nts HEMOGLOBIN A1c (test code = 41532) 7.9 % Mamadou Babb AustinHEMOGLOBIN [id number] 00:00:00* Test Item Value Reference Range Interpretation Comme nts HEMOGLOBIN A1c (test code = 59640) 7.9 % Mamadou F AustinHEMOGLOBIN [id number] 00:00:00* Test Item Value Reference Range Interpretation Comme nts HEMOGLOBIN A1c (test code = 66511) 7.9 % Mamadou Babb AustinHEMOGLOBIN [id number] 00:00:00* Test Item Value Reference Range Interpretation Comme nts HEMOGLOBIN A1c (test code = 56141) 7.9 % MICROALBUMIN/CREATININE, RANDOM AND [id number] 00:00:00* Test Item Value Reference Range Interpretation Comme nts CREATININE, URINE, CONC. (te st code = 207) 72.1 MG/DL ALBUMIN, URINE, RANDOM (test code = 33687) 1.7 MG/DL CALC ALBUMIN/CREAT, RND (cassi t code = 65490) 24 MG/G Mamadou Babb AustinMICROALBUMIN/CREATININE, RANDOM AND [id number] 00:00:00* Test Item Value Reference Range Interpretation Comme nts CREATININE, URINE, CONC. (te st code = 2071) 72.1 MG/DL ALBUMIN, URINE, RANDOM (test code = 42817) 1.7 MG/DL CALC ALBUMIN/CREAT, RND (cassi t code = 41339) 24 MG/G Mamadou Babb AustinMICROALBUMIN/CREATININE, RANDOM AND [id number] 00:00:00* Test Item Value Reference Range Interpretation Comme nts CREATININE, URINE, CONC. (te st code = 2071) 72.1 MG/DL ALBUMIN, URINE, RANDOM (test code = 11406) 1.7 MG/DL CALC ALBUMIN/CREAT, RND (cassi t code = 70373) 24 MG/G Mamadou F AustinMICROALBUMIN/CREATININE, RANDOM AND [id number] 00:00:00* Test Item Value Reference Range Interpretation Comme nts CREATININE, URINE, CONC. (te st code = 207) 72.1 MG/DL ALBUMIN, URINE, RANDOM (test code = 84654) 1.7 MG/DL CALC ALBUMIN/CREAT, RND (cassi t code = 33247) 24 MG/G LIPID [id number] 00:00:00* Test Item Value Reference Range Interpretation Comme nts CHOLESTEROL (test code = 2210) 215 MG/DL TRIGLYCERIDES (test code = 2232) 83 MG/DL HDL CHOLESTEROL (test code = 2220) 59 MG/DL CALC LDL CHOL (test code = 2237) 138 MG/DL RISK RATIO LDL/HDL (test cod e = 2238) 2.34 RATIO Mamadou F AustinCOMPREHENSIVE METABOLIC [id number] 00:00:00* Test Item Value Reference Range Interpretation Comme nts GLUCOSE (test code = 2217) 159 MG/DL BUN (test code = 2208) 22 MG/DL CREATININE (test code = 2214) 0.81 MG/DL eGFR AMER. (test cod e = 07456) 102 ML/MIN/1.73 eGFR NON- AMER. (test code = 03033) 88 ML/MIN/1.73 CALC BUN/CREAT (test code = 2235) 27 RATIO SODIUM (test code = 2231) 139 MEQ/L POTASSIUM (test code = 2228) 4.7 MEQ/L CHLORIDE (test code = 2215) 101 MEQ/L CARBON DIOXIDE (test code = 2206) 27 MEQ/L CALCIUM (test code = 2209) 9.9 MG/DL PROTEIN, TOTAL (test code = 2229) 7.7 G/DL ALBUMIN (test code = 2201) 4.9 G/DL CALC GLOBULIN (test code = 2240) 2.8 G/DL CALC A/G RATIO (test code = 2234) 1.8 RATIO BILIRUBIN, TOTAL (test code = 2207) <0.2 MG/DL ALKALINE PHOSPHATASE (test code = 2204) 128 U/L AST (test code = 2218) 20 U/L ALT (test code = 2219) 11 U/L Mamadou Babb AustinLIPID [id number] 00:00:00* Test Item Value Reference Range Interpretation Comme nts CHOLESTEROL (test code = 2210) 215 MG/DL TRIGLYCERIDES (test code = 2232) 83 MG/DL HDL CHOLESTEROL (test code = 2220) 59 MG/DL CALC LDL CHOL (test code = 2237) 138 MG/DL RISK RATIO LDL/HDL (test cod e = 2238) 2.34 RATIO Mamadou F AustinCOMPREHENSIVE METABOLIC [id number] 00:00:00* Test Item Value Reference Range Interpretation Comme nts GLUCOSE (test code = 2217) 159 MG/DL BUN (test code = 2208) 22 MG/DL CREATININE (test code = 2214) 0.81 MG/DL eGFR AMER. (test cod e = 48176) 102 ML/MIN/1.73 eGFR NON- AMER. (test code = 49072) 88 ML/MIN/1.73 CALC BUN/CREAT (test code = 2235) 27 RATIO SODIUM (test code = 2231) 139 MEQ/L POTASSIUM (test code = 2228) 4.7 MEQ/L CHLORIDE (test code = 2215) 101 MEQ/L CARBON DIOXIDE (test code = 2206) 27 MEQ/L CALCIUM (test code = 2209) 9.9 MG/DL PROTEIN, TOTAL (test code = 2229) 7.7 G/DL ALBUMIN (test code = 2201) 4.9 G/DL CALC GLOBULIN (test code = 2240) 2.8 G/DL CALC A/G RATIO (test code = 2234) 1.8 RATIO BILIRUBIN, TOTAL (test code = 2207) <0.2 MG/DL ALKALINE PHOSPHATASE (test code = 2204) 128 U/L AST (test code = 2218) 20 U/L ALT (test code = 2219) 11 U/L Mamadou Babb AustinLIPID [id number] 00:00:00* Test Item Value Reference Range Interpretation Comme nts CHOLESTEROL (test code = 2210) 215 MG/DL TRIGLYCERIDES (test code = 2232) 83 MG/DL HDL CHOLESTEROL (test code = 2220) 59 MG/DL CALC LDL CHOL (test code = 2237) 138 MG/DL RISK RATIO LDL/HDL (test cod e = 2238) 2.34 RATIO Mamadou Babb AustinCOMPREHENSIVE METABOLIC [id number] 00:00:00* Test Item Value Reference Range Interpretation Comme nts GLUCOSE (test code = 2217) 159 MG/DL BUN (test code = 2208) 22 MG/DL CREATININE (test code = 2214) 0.81 MG/DL eGFR AMER. (test cod e = 08220) 102 ML/MIN/1.73 eGFR NON- AMER. (test code = 80545) 88 ML/MIN/1.73 CALC BUN/CREAT (test code = 2235) 27 RATIO SODIUM (test code = 2231) 139 MEQ/L POTASSIUM (test code = 2228) 4.7 MEQ/L CHLORIDE (test code = 2215) 101 MEQ/L CARBON DIOXIDE (test code = 2206) 27 MEQ/L CALCIUM (test code = 2209) 9.9 MG/DL PROTEIN, TOTAL (test code = 2229) 7.7 G/DL ALBUMIN (test code = 2201) 4.9 G/DL CALC GLOBULIN (test code = 2240) 2.8 G/DL CALC A/G RATIO (test code = 2234) 1.8 RATIO BILIRUBIN, TOTAL (test code = 2207) <0.2 MG/DL ALKALINE PHOSPHATASE (test code = 2204) 128 U/L AST (test code = 2218) 20 U/L ALT (test code = 2219) 11 U/L COMPREHENSIVE METABOLIC [id number] 00:00:00* Test Item Value Reference Range Interpretation Comme nts GLUCOSE (test code = 2217) 159 MG/DL BUN (test code = 2208) 22 MG/DL CREATININE (test code = 2214) 0.81 MG/DL eGFR AMER. (test cod e = 65987) 102 ML/MIN/1.73 eGFR NON- AMER. (test code = 04305) 88 ML/MIN/1.73 CALC BUN/CREAT (test code = 2235) 27 RATIO SODIUM (test code = 2231) 139 MEQ/L POTASSIUM (test code = 2228) 4.7 MEQ/L CHLORIDE (test code = 2215) 101 MEQ/L CARBON DIOXIDE (test code = 2206) 27 MEQ/L CALCIUM (test code = 2209) 9.9 MG/DL PROTEIN, TOTAL (test code = 2229) 7.7 G/DL ALBUMIN (test code = 2201) 4.9 G/DL CALC GLOBULIN (test code = 2240) 2.8 G/DL CALC A/G RATIO (test code = 2234) 1.8 RATIO BILIRUBIN, TOTAL (test code = 2207) <0.2 MG/DL ALKALINE PHOSPHATASE (test code = 2204) 128 U/L AST (test code = 2218) 20 U/L ALT (test code = 2219) 11 U/L Mamadou F AustinLIPID [id number] 00:00:00* Test Item Value Reference Range Interpretation Comme nts CHOLESTEROL (test code = 2210) 215 MG/DL TRIGLYCERIDES (test code = 2232) 83 MG/DL HDL CHOLESTEROL (test code = 2220) 59 MG/DL CALC LDL CHOL (test code = 2237) 138 MG/DL RISK RATIO LDL/HDL (test cod e = 2238) 2.34 RATIO CBC W/AUTO [id number] 00:00:00* Test Item Value Reference Range Interpretation Comme nts WBC (test code = 1001) 8.3 K/UL RBC (test code = 1002) 4.19 M/UL HEMOGLOBIN (test code = 1003) 12.5 G/DL HEMATOCRIT (test code = 1004) 37.7 % MCV (test code = 1005) 90.0 fL MCH (test code = 1006) 29.8 PG MCHC (test code = 1007) 33.2 G/DL RDW (test code = 1038) 12.4 % NEUTROPHILS (test code = 1008) 56.6 % LYMPHOCYTES (test code = 1010) 31.3 % MONOCYTES (test code = 1011) 5.6 % EOSINOPHILS (test code = 1012) 5.9 % BASOPHILS (test code = 1013) 0.5 % IMMATURE GRANULOCYTES (test code = 1036) 0.1 % NUCLEATED RBCS (test code = 1065) 0.0 /100WBC'S PLATELET COUNT (test code = 1015) 276 K/UL ABSOLUTE NEUTROPHILS (test c ode = 1066) 4.69 K/UL ABSOLUTE LYMPHOCYTES (test c ode = 1067) 2.59 K/UL ABSOLUTE MONOCYTES (test cod e = 1068) 0.46 K/UL ABSOLUTE EOSINOPHILS (test c ode = 1040) 0.49 K/UL ABSOLUTE BASOPHILS (test cod e = 1069) 0.04 K/UL ABS IMMATURE GRANULOCYTES (t est code = 1020) 0.01 K/UL ABS NUCLEATED RBCS (test cod e = 60624) 0.00 K/UL Mamadou MoserCBC W/AUTO [id number] 00:00:00* Test Item Value Reference Range Interpretation Comme nts WBC (test code = 1001) 8.3 K/UL RBC (test code = 1002) 4.19 M/UL HEMOGLOBIN (test code = 1003) 12.5 G/DL HEMATOCRIT (test code = 1004) 37.7 % MCV (test code = 1005) 90.0 fL MCH (test code = 1006) 29.8 PG MCHC (test code = 1007) 33.2 G/DL RDW (test code = 1038) 12.4 % NEUTROPHILS (test code = 1008) 56.6 % LYMPHOCYTES (test code = 1010) 31.3 % MONOCYTES (test code = 1011) 5.6 % EOSINOPHILS (test code = 1012) 5.9 % BASOPHILS (test code = 1013) 0.5 % IMMATURE GRANULOCYTES (test code = 1036) 0.1 % NUCLEATED RBCS (test code = 1065) 0.0 /100WBC'S PLATELET COUNT (test code = 1015) 276 K/UL ABSOLUTE NEUTROPHILS (test c ode = 1066) 4.69 K/UL ABSOLUTE LYMPHOCYTES (test c ode = 1067) 2.59 K/UL ABSOLUTE MONOCYTES (test cod e = 1068) 0.46 K/UL ABSOLUTE EOSINOPHILS (test c ode = 1040) 0.49 K/UL ABSOLUTE BASOPHILS (test cod e = 1069) 0.04 K/UL ABS IMMATURE GRANULOCYTES (t est code = 1020) 0.01 K/UL ABS NUCLEATED RBCS (test cod e = 41728) 0.00 K/UL Mamadou Babb [facility] W/AUTO [id number] 00:00:00* Test Item Value Reference Range Interpretation Comme nts WBC (test code = 1001) 8.3 K/UL RBC (test code = 1002) 4.19 M/UL HEMOGLOBIN (test code = 1003) 12.5 G/DL HEMATOCRIT (test code = 1004) 37.7 % MCV (test code = 1005) 90.0 fL MCH (test code = 1006) 29.8 PG MCHC (test code = 1007) 33.2 G/DL RDW (test code = 1038) 12.4 % NEUTROPHILS (test code = 1008) 56.6 % LYMPHOCYTES (test code = 1010) 31.3 % MONOCYTES (test code = 1011) 5.6 % EOSINOPHILS (test code = 1012) 5.9 % BASOPHILS (test code = 1013) 0.5 % IMMATURE GRANULOCYTES (test code = 1036) 0.1 % NUCLEATED RBCS (test code = 1065) 0.0 /100WBC'S PLATELET COUNT (test code = 1015) 276 K/UL ABSOLUTE NEUTROPHILS (test c ode = 1066) 4.69 K/UL ABSOLUTE LYMPHOCYTES (test c ode = 1067) 2.59 K/UL ABSOLUTE MONOCYTES (test cod e = 1068) 0.46 K/UL ABSOLUTE EOSINOPHILS (test c ode = 1040) 0.49 K/UL ABSOLUTE BASOPHILS (test cod e = 1069) 0.04 K/UL ABS IMMATURE GRANULOCYTES (t est code = 1020) 0.01 K/UL ABS NUCLEATED RBCS (test cod e = 15574) 0.00 K/UL Mamadou Babb [facility] W/AUTO [id number] 00:00:00* Test Item Value Reference Range Interpretation Comme nts WBC (test code = 1001) 8.3 K/UL RBC (test code = 1002) 4.19 M/UL HEMOGLOBIN (test code = 1003) 12.5 G/DL HEMATOCRIT (test code = 1004) 37.7 % MCV (test code = 1005) 90.0 fL MCH (test code = 1006) 29.8 PG MCHC (test code = 1007) 33.2 G/DL RDW (test code = 1038) 12.4 % NEUTROPHILS (test code = 1008) 56.6 % LYMPHOCYTES (test code = 1010) 31.3 % MONOCYTES (test code = 1011) 5.6 % EOSINOPHILS (test code = 1012) 5.9 % BASOPHILS (test code = 1013) 0.5 % IMMATURE GRANULOCYTES (test code = 1036) 0.1 % NUCLEATED RBCS (test code = 1065) 0.0 /100WBC'S PLATELET COUNT (test code = 1015) 276 K/UL ABSOLUTE NEUTROPHILS (test c ode = 1066) 4.69 K/UL ABSOLUTE LYMPHOCYTES (test c ode = 1067) 2.59 K/UL ABSOLUTE MONOCYTES (test cod e = 1068) 0.46 K/UL ABSOLUTE EOSINOPHILS (test c ode = 1040) 0.49 K/UL ABSOLUTE BASOPHILS (test cod e = 1069) 0.04 K/UL ABS IMMATURE GRANULOCYTES (t est code = 1020) 0.01 K/UL ABS NUCLEATED RBCS (test cod e = 12361) 0.00 K/UL HEMOGLOBIN [id number] 00:00:00* Test Item Value Reference Range Interpretation Comme aleksandra HEMOGLOBIN A1c (test code = 03913) 6.3 % Mamadou Babb AustinHEMOGLOBIN [id number] 00:00:00* Test Item Value Reference Range Interpretation Comme nts HEMOGLOBIN A1c (test code = 69416) 6.3 % Mamadou Babb AustinHEMOGLOBIN [id number] 00:00:00* Test Item Value Reference Range Interpretation Comme nts HEMOGLOBIN A1c (test code = 21487) 6.3 % Mamadou Babb AustinHEMOGLOBIN [id number] 00:00:00* Test Item Value Reference Range Interpretation Comme nts HEMOGLOBIN A1c (test code = 60346) 6.3 % LIPID [id number] 00:00:00* Test Item Value Reference Range Interpretation Comme nts CHOLESTEROL (test code = 2210) 211 MG/DL TRIGLYCERIDES (test code = 2232) 115 MG/DL HDL CHOLESTEROL (test code = 2220) 60 MG/DL CALC LDL CHOL (test code = 2237) 128 MG/DL RISK RATIO LDL/HDL (test cod e = 2238) 2.13 RATIO Mamadou MoserCOMPREHENSIVE METABOLIC [id number] 00:00:00* Test Item Value Reference Range Interpretation Comme nts GLUCOSE (test code = 2217) 88 MG/DL BUN (test code = 2208) 17 MG/DL CREATININE (test code = 2214) 0.88 MG/DL eGFR AMER. (test cod e = 55087) 93 ML/MIN/1.73 eGFR NON- AMER. (test code = 36582) 80 ML/MIN/1.73 CALC BUN/CREAT (test code = 2235) 19 RATIO SODIUM (test code = 2231) 142 MEQ/L POTASSIUM (test code = 2228) 4.5 MEQ/L CHLORIDE (test code = 2215) 104 MEQ/L CARBON DIOXIDE (test code = 2206) 25 MEQ/L CALCIUM (test code = 2209) 9.8 MG/DL PROTEIN, TOTAL (test code = 2229) 7.3 G/DL ALBUMIN (test code = 2201) 4.5 G/DL CALC GLOBULIN (test code = 2240) 2.8 G/DL CALC A/G RATIO (test code = 2234) 1.6 RATIO BILIRUBIN, TOTAL (test code = 2207) <0.2 MG/DL ALKALINE PHOSPHATASE (test code = 2204) 89 U/L AST (test code = 2218) 20 U/L ALT (test code = 2219) 10 U/L Mamadou MoserHEMOGLOBIN [id number] 00:00:00* Test Item Value Reference Range Interpretation Comme nts HEMOGLOBIN A1c (test code = 43337) 8.5 % Mamadou MoserLIPID [id number] 00:00:00* Test Item Value Reference Range Interpretation Comme nts CHOLESTEROL (test code = 2210) 211 MG/DL TRIGLYCERIDES (test code = 2232) 115 MG/DL HDL CHOLESTEROL (test code = 2220) 60 MG/DL CALC LDL CHOL (test code = 2237) 128 MG/DL RISK RATIO LDL/HDL (test cod e = 2238) 2.13 RATIO Mamadou MoserCOMPREHENSIVE METABOLIC [id number] 00:00:00* Test Item Value Reference Range Interpretation Comme nts GLUCOSE (test code = 2217) 88 MG/DL BUN (test code = 2208) 17 MG/DL CREATININE (test code = 2214) 0.88 MG/DL eGFR AMER. (test cod e = 59784) 93 ML/MIN/1.73 eGFR NON- AMER. (test code = 06921) 80 ML/MIN/1.73 CALC BUN/CREAT (test code = 2235) 19 RATIO SODIUM (test code = 2231) 142 MEQ/L POTASSIUM (test code = 2228) 4.5 MEQ/L CHLORIDE (test code = 2215) 104 MEQ/L CARBON DIOXIDE (test code = 2206) 25 MEQ/L CALCIUM (test code = 2209) 9.8 MG/DL PROTEIN, TOTAL (test code = 2229) 7.3 G/DL ALBUMIN (test code = 2201) 4.5 G/DL CALC GLOBULIN (test code = 2240) 2.8 G/DL CALC A/G RATIO (test code = 2234) 1.6 RATIO BILIRUBIN, TOTAL (test code = 2207) <0.2 MG/DL ALKALINE PHOSPHATASE (test code = 2204) 89 U/L AST (test code = 2218) 20 U/L ALT (test code = 2219) 10 U/L Mamadou MoserHEMOGLOBIN [id number] 00:00:00* Test Item Value Reference Range Interpretation Comme aleksandra HEMOGLOBIN A1c (test code = 33961) 8.5 % Mamadou MoserLIPID [id number] 00:00:00* Test Item Value Reference Range Interpretation Comme nts CHOLESTEROL (test code = 2210) 211 MG/DL TRIGLYCERIDES (test code = 2232) 115 MG/DL HDL CHOLESTEROL (test code = 2220) 60 MG/DL CALC LDL CHOL (test code = 2237) 128 MG/DL RISK RATIO LDL/HDL (test cod e = 2238) 2.13 RATIO Mamadou MoserCOMPREHENSIVE METABOLIC [id number] 00:00:00* Test Item Value Reference Range Interpretation Comme nts GLUCOSE (test code = 2217) 88 MG/DL BUN (test code = 2208) 17 MG/DL CREATININE (test code = 2214) 0.88 MG/DL eGFR AMER. (test cod e = 21558) 93 ML/MIN/1.73 eGFR NON- AMER. (test code = 10296) 80 ML/MIN/1.73 CALC BUN/CREAT (test code = 2235) 19 RATIO SODIUM (test code = 2231) 142 MEQ/L POTASSIUM (test code = 2228) 4.5 MEQ/L CHLORIDE (test code = 2215) 104 MEQ/L CARBON DIOXIDE (test code = 2206) 25 MEQ/L CALCIUM (test code = 2209) 9.8 MG/DL PROTEIN, TOTAL (test code = 2229) 7.3 G/DL ALBUMIN (test code = 2201) 4.5 G/DL CALC GLOBULIN (test code = 2240) 2.8 G/DL CALC A/G RATIO (test code = 2234) 1.6 RATIO BILIRUBIN, TOTAL (test code = 2207) <0.2 MG/DL ALKALINE PHOSPHATASE (test code = 2204) 89 U/L AST (test code = 2218) 20 U/L ALT (test code = 2219) 10 U/L Mamadou MoserHEMOGLOBIN [id number] 00:00:00* Test Item Value Reference Range Interpretation Comme aleksandra HEMOGLOBIN A1c (test code = 11805) 8.5 % HEMOGLOBIN [id number] 00:00:00* Test Item Value Reference Range Interpretation Comme nts HEMOGLOBIN A1c (test code = 72926) 8.5 % Mamadou MoserLIPID [id number] 00:00:00* Test Item Value Reference Range Interpretation Comme nts CHOLESTEROL (test code = 2210) 211 MG/DL TRIGLYCERIDES (test code = 2232) 115 MG/DL HDL CHOLESTEROL (test code = 2220) 60 MG/DL CALC LDL CHOL (test code = 2237) 128 MG/DL RISK RATIO LDL/HDL (test cod e = 2238) 2.13 RATIO COMPREHENSIVE METABOLIC [id number] 00:00:00* Test Item Value Reference Range Interpretation Comme nts GLUCOSE (test code = 2217) 88 MG/DL BUN (test code = 2208) 17 MG/DL CREATININE (test code = 2214) 0.88 MG/DL eGFR AMER. (test cod e = 48492) 93 ML/MIN/1.73 eGFR NON- AMER. (test code = 28506) 80 ML/MIN/1.73 CALC BUN/CREAT (test code = 2235) 19 RATIO SODIUM (test code = 2231) 142 MEQ/L POTASSIUM (test code = 2228) 4.5 MEQ/L CHLORIDE (test code = 2215) 104 MEQ/L CARBON DIOXIDE (test code = 2206) 25 MEQ/L CALCIUM (test code = 2209) 9.8 MG/DL PROTEIN, TOTAL (test code = 2229) 7.3 G/DL ALBUMIN (test code = 2201) 4.5 G/DL CALC GLOBULIN (test code = 2240) 2.8 G/DL CALC A/G RATIO (test code = 2234) 1.6 RATIO BILIRUBIN, TOTAL (test code = 2207) <0.2 MG/DL ALKALINE PHOSPHATASE (test code = 2204) 89 U/L AST (test code = 2218) 20 U/L ALT (test code = 2219) 10 U/L CULTURE, [id number] 00:00:00* Test Item Value Reference Range Interpretation Comme nts CULTURE, URINE (test code = 05050) SPECIMEN NUMBER: [id number] Mamadou Babb EhsanCULTURE, [id number] 00:00:00* Test Item Value Reference Range Interpretation Comme nts CULTURE, URINE (test code = 65225) SPECIMEN NUMBER: [id number] Mamadou MoserCULTURE, [id number] 00:00:00* Test Item Value Reference Range Interpretation Comme nts CULTURE, URINE (test code = 46748) SPECIMEN NUMBER: [id number] CULTURE, [id number] 00:00:00* Test Item Value Reference Range Interpretation Comme nts CULTURE, URINE (test code = 13910) SPECIMEN NUMBER: [id number] Mamadou Babb AustinLIPID [id number] 00:00:00* Test Item Value Reference Range Interpretation Comme nts CHOLESTEROL (test code = 2210) 202 MG/DL TRIGLYCERIDES (test code = 2232) 58 MG/DL HDL CHOLESTEROL (test code = 2220) 53 MG/DL CALC LDL CHOL (test code = 2237) 137 MG/DL RISK RATIO LDL/HDL (test cod e = 2238) 2.59 RATIO Mamadou MoserHEMOGLOBIN [id number] 00:00:00* Test Item Value Reference Range Interpretation Comme aleksandra HEMOGLOBIN A1c (test code = 12204) 10.7 % Mamadou MoserCOMPREHENSIVE METABOLIC [id number] 00:00:00* Test Item Value Reference Range Interpretation Comme nts GLUCOSE (test code = 2217) 186 MG/DL BUN (test code = 2208) 17 MG/DL CREATININE (test code = 2214) 0.63 MG/DL eGFR AMER. (test cod e = 34723) 130 ML/MIN/1.73 eGFR NON- AMER. (test code = 40473) 112 ML/MIN/1.73 CALC BUN/CREAT (test code = 2235) 27 RATIO SODIUM (test code = 2231) 140 MEQ/L POTASSIUM (test code = 2228) 4.4 MEQ/L CHLORIDE (test code = 2215) 100 MEQ/L CARBON DIOXIDE (test code = 2206) 26 MEQ/L CALCIUM (test code = 2209) 9.7 MG/DL PROTEIN, TOTAL (test code = 2229) 7.0 G/DL ALBUMIN (test code = 2201) 4.5 G/DL CALC GLOBULIN (test code = 2240) 2.5 G/DL CALC A/G RATIO (test code = 2234) 1.8 RATIO BILIRUBIN, TOTAL (test code = 2207) 0.2 MG/DL ALKALINE PHOSPHATASE (test code = 2204) 104 U/L AST (test code = 2218) 14 U/L ALT (test code = 2219) 6 U/L Mamadou Babb AustinLIPID [id number] 00:00:00* Test Item Value Reference Range Interpretation Comme nts CHOLESTEROL (test code = 2210) 202 MG/DL TRIGLYCERIDES (test code = 2232) 58 MG/DL HDL CHOLESTEROL (test code = 2220) 53 MG/DL CALC LDL CHOL (test code = 2237) 137 MG/DL RISK RATIO LDL/HDL (test cod e = 2238) 2.59 RATIO Mamadou MoserHEMOGLOBIN [id number] 00:00:00* Test Item Value Reference Range Interpretation Comme nts HEMOGLOBIN A1c (test code = 26590) 10.7 % Mamadou MoserCOMPREHENSIVE METABOLIC [id number] 00:00:00* Test Item Value Reference Range Interpretation Comme nts GLUCOSE (test code = 2217) 186 MG/DL BUN (test code = 2208) 17 MG/DL CREATININE (test code = 2214) 0.63 MG/DL eGFR AMER. (test cod e = 31251) 130 ML/MIN/1.73 eGFR NON- AMER. (test code = 55549) 112 ML/MIN/1.73 CALC BUN/CREAT (test code = 2235) 27 RATIO SODIUM (test code = 2231) 140 MEQ/L POTASSIUM (test code = 2228) 4.4 MEQ/L CHLORIDE (test code = 2215) 100 MEQ/L CARBON DIOXIDE (test code = 2206) 26 MEQ/L CALCIUM (test code = 2209) 9.7 MG/DL PROTEIN, TOTAL (test code = 2229) 7.0 G/DL ALBUMIN (test code = 2201) 4.5 G/DL CALC GLOBULIN (test code = 2240) 2.5 G/DL CALC A/G RATIO (test code = 2234) 1.8 RATIO BILIRUBIN, TOTAL (test code = 2207) 0.2 MG/DL ALKALINE PHOSPHATASE (test code = 2204) 104 U/L AST (test code = 2218) 14 U/L ALT (test code = 2219) 6 U/L Mamadou F AustinLIPID [id number] 00:00:00* Test Item Value Reference Range Interpretation Comme nts CHOLESTEROL (test code = 2210) 202 MG/DL TRIGLYCERIDES (test code = 2232) 58 MG/DL HDL CHOLESTEROL (test code = 2220) 53 MG/DL CALC LDL CHOL (test code = 2237) 137 MG/DL RISK RATIO LDL/HDL (test cod e = 2238) 2.59 RATIO Mamadou MoserHEMOGLOBIN [id number] 00:00:00* Test Item Value Reference Range Interpretation Comme nts HEMOGLOBIN A1c (test code = 26117) 10.7 % Mamadou Babb AustinCOMPREHENSIVE METABOLIC [id number] 00:00:00* Test Item Value Reference Range Interpretation Comme nts GLUCOSE (test code = 2217) 186 MG/DL BUN (test code = 2208) 17 MG/DL CREATININE (test code = 2214) 0.63 MG/DL eGFR AMER. (test cod e = 77684) 130 ML/MIN/1.73 eGFR NON- AMER. (test code = 11659) 112 ML/MIN/1.73 CALC BUN/CREAT (test code = 2235) 27 RATIO SODIUM (test code = 2231) 140 MEQ/L POTASSIUM (test code = 2228) 4.4 MEQ/L CHLORIDE (test code = 2215) 100 MEQ/L CARBON DIOXIDE (test code = 2206) 26 MEQ/L CALCIUM (test code = 2209) 9.7 MG/DL PROTEIN, TOTAL (test code = 2229) 7.0 G/DL ALBUMIN (test code = 2201) 4.5 G/DL CALC GLOBULIN (test code = 2240) 2.5 G/DL CALC A/G RATIO (test code = 2234) 1.8 RATIO BILIRUBIN, TOTAL (test code = 2207) 0.2 MG/DL ALKALINE PHOSPHATASE (test code = 2204) 104 U/L AST (test code = 2218) 14 U/L ALT (test code = 2219) 6 U/L Mamadou MoserCOMPREHENSIVE METABOLIC [id number] 00:00:00* Test Item Value Reference Range Interpretation Comme nts GLUCOSE (test code = 2217) 186 MG/DL BUN (test code = 2208) 17 MG/DL CREATININE (test code = 2214) 0.63 MG/DL eGFR AMER. (test cod e = 90815) 130 ML/MIN/1.73 eGFR NON- AMER. (test code = 31241) 112 ML/MIN/1.73 CALC BUN/CREAT (test code = 2235) 27 RATIO SODIUM (test code = 2231) 140 MEQ/L POTASSIUM (test code = 2228) 4.4 MEQ/L CHLORIDE (test code = 2215) 100 MEQ/L CARBON DIOXIDE (test code = 2206) 26 MEQ/L CALCIUM (test code = 2209) 9.7 MG/DL PROTEIN, TOTAL (test code = 2229) 7.0 G/DL ALBUMIN (test code = 2201) 4.5 G/DL CALC GLOBULIN (test code = 2240) 2.5 G/DL CALC A/G RATIO (test code = 2234) 1.8 RATIO BILIRUBIN, TOTAL (test code = 2207) 0.2 MG/DL ALKALINE PHOSPHATASE (test code = 2204) 104 U/L AST (test code = 2218) 14 U/L ALT (test code = 2219) 6 U/L LIPID [id number] 00:00:00* Test Item Value Reference Range Interpretation Comme nts CHOLESTEROL (test code = 2210) 202 MG/DL TRIGLYCERIDES (test code = 2232) 58 MG/DL HDL CHOLESTEROL (test code = 2220) 53 MG/DL CALC LDL CHOL (test code = 2237) 137 MG/DL RISK RATIO LDL/HDL (test cod e = 2238) 2.59 RATIO HEMOGLOBIN [id number] 00:00:00* Test Item Value Reference Range Interpretation Comme nts HEMOGLOBIN A1c (test code = 85779) 10.7 % LIPID [id number] 00:00:00* Test Item Value Reference Range Interpretation Comme nts CHOLESTEROL (test code = 2210) 249 MG/DL TRIGLYCERIDES (test code = 2232) 104 MG/DL HDL CHOLESTEROL (test code = 2220) 56 MG/DL CALC LDL CHOL (test code = 2237) 172 MG/DL RISK RATIO LDL/HDL (test cod e = 2238) 3.08 RATIO [facility]hubert [facility] [id number] 00:00:00* Test Item Value Reference Range Interpretation Comme nts WBC (test code = 1001) 7.0 K/UL RBC (test code = 1002) 4.87 M/UL HEMOGLOBIN (test code = 1003) 14.2 G/DL HEMATOCRIT (test code = 1004) 41.9 % MCV (test code = 1005) 86.0 fL MCH (test code = 1006) 29.2 PG MCHC (test code = 1007) 33.9 G/DL RDW (test code = 1038) 13.0 % NEUTROPHILS (test code = 1008) 67 % LYMPHOCYTES (test code = 1010) 25 % MONOCYTES (test code = 1011) 6 % EOSINOPHILS (test code = 1012) 2 % PLATELET COUNT (test code = 1015) 235 K/UL Mamadou Babb EhsanHEMOGLOBIN [id number] 00:00:00* Test Item Value Reference Range Interpretation Comme nts HEMOGLOBIN A1c (test code = 01638) 12.6 % Mamadou Babb EhsanTHYROID II PROFILE (T3U, T4, T7, TSH)2016-06-03 00:00:00* Test Item Value Reference Range Interpretation Comme nts T3 UPTAKE (test code = 2817) 29.1 % T4 (THYROXINE) (test code = 2819) 8.1 UG/DL CALCULATED T7 (FTI) (test co de = 2820) 2.36 TSH (test code = 2821) 2.8 UIU/ML Mamadou Babb EhsanCOMPREHENSIVE METABOLIC [id number] 00:00:00* Test Item Value Reference Range Interpretation Comme nts GLUCOSE (test code = 2217) 318 MG/DL BUN (test code = 2208) 18 MG/DL CREATININE (test code = 2214) 0.61 MG/DL eGFR AMER. (test cod e = 05281) 131 ML/MIN/1.73 eGFR NON- AMER. (test code = 59296) 113 ML/MIN/1.73 CALC BUN/CREAT (test code = 2235) 30 RATIO SODIUM (test code = 2231) 136 MEQ/L POTASSIUM (test code = 2228) 4.5 MEQ/L CHLORIDE (test code = 2215) 96 MEQ/L CARBON DIOXIDE (test code = 2206) 21 MEQ/L CALCIUM (test code = 2209) 10.1 MG/DL PROTEIN, TOTAL (test code = 2229) 7.2 G/DL ALBUMIN (test code = 2201) 4.8 G/DL CALC GLOBULIN (test code = 2240) 2.4 G/DL CALC A/G RATIO (test code = 2234) 2.0 RATIO BILIRUBIN, TOTAL (test code = 2207) 0.2 MG/DL ALKALINE PHOSPHATASE (test code = 2204) 115 U/L AST (test code = 2218) 12 U/L ALT (test code = 2219) 7 U/L Mamadou MoserLIPID [id number] 00:00:00* Test Item Value Reference Range Interpretation Comme nts CHOLESTEROL (test code = 2210) 249 MG/DL TRIGLYCERIDES (test code = 2232) 104 MG/DL HDL CHOLESTEROL (test code = 2220) 56 MG/DL CALC LDL CHOL (test code = 2237) 172 MG/DL RISK RATIO LDL/HDL (test cod e = 2238) 3.08 RATIO Mamadou MoserCBC W/AUTO [id number] 00:00:00* Test Item Value Reference Range Interpretation Comme nts WBC (test code = 1001) 7.0 K/UL RBC (test code = 1002) 4.87 M/UL HEMOGLOBIN (test code = 1003) 14.2 G/DL HEMATOCRIT (test code = 1004) 41.9 % MCV (test code = 1005) 86.0 fL MCH (test code = 1006) 29.2 PG MCHC (test code = 1007) 33.9 G/DL RDW (test code = 1038) 13.0 % NEUTROPHILS (test code = 1008) 67 % LYMPHOCYTES (test code = 1010) 25 % MONOCYTES (test code = 1011) 6 % EOSINOPHILS (test code = 1012) 2 % PLATELET COUNT (test code = 1015) 235 K/UL Mamadou MoserHEMOGLOBIN [id number] 00:00:00* Test Item Value Reference Range Interpretation Comme nts HEMOGLOBIN A1c (test code = 62157) 12.6 % Mamadou MoserTHYROID II PROFILE (T3U, T4, T7, TSH)2016-06-03 00:00:00* Test Item Value Reference Range Interpretation Comme nts T3 UPTAKE (test code = 2817) 29.1 % T4 (THYROXINE) (test code = 2819) 8.1 UG/DL CALCULATED T7 (FTI) (test co de = 2820) 2.36 TSH (test code = 2821) 2.8 UIU/ML Mamadou MoserCOMPREHENSIVE METABOLIC [id number] 00:00:00* Test Item Value Reference Range Interpretation Comme nts GLUCOSE (test code = 2217) 318 MG/DL BUN (test code = 2208) 18 MG/DL CREATININE (test code = 2214) 0.61 MG/DL eGFR AMER. (test cod e = 04955) 131 ML/MIN/1.73 eGFR NON- AMER. (test code = 23106) 113 ML/MIN/1.73 CALC BUN/CREAT (test code = 2235) 30 RATIO SODIUM (test code = 2231) 136 MEQ/L POTASSIUM (test code = 2228) 4.5 MEQ/L CHLORIDE (test code = 2215) 96 MEQ/L CARBON DIOXIDE (test code = 2206) 21 MEQ/L CALCIUM (test code = 2209) 10.1 MG/DL PROTEIN, TOTAL (test code = 2229) 7.2 G/DL ALBUMIN (test code = 2201) 4.8 G/DL CALC GLOBULIN (test code = 2240) 2.4 G/DL CALC A/G RATIO (test code = 2234) 2.0 RATIO BILIRUBIN, TOTAL (test code = 2207) 0.2 MG/DL ALKALINE PHOSPHATASE (test code = 2204) 115 U/L AST (test code = 2218) 12 U/L ALT (test code = 2219) 7 U/L Mamadou MoserLIPID [id number] 00:00:00* Test Item Value Reference Range Interpretation Comme nts CHOLESTEROL (test code = 2210) 249 MG/DL TRIGLYCERIDES (test code = 2232) 104 MG/DL HDL CHOLESTEROL (test code = 2220) 56 MG/DL CALC LDL CHOL (test code = 2237) 172 MG/DL RISK RATIO LDL/HDL (test cod e = 2238) 3.08 RATIO Mamadou MoserCBC W/AUTO [id number] 00:00:00* Test Item Value Reference Range Interpretation Comme nts WBC (test code = 1001) 7.0 K/UL RBC (test code = 1002) 4.87 M/UL HEMOGLOBIN (test code = 1003) 14.2 G/DL HEMATOCRIT (test code = 1004) 41.9 % MCV (test code = 1005) 86.0 fL MCH (test code = 1006) 29.2 PG MCHC (test code = 1007) 33.9 G/DL RDW (test code = 1038) 13.0 % NEUTROPHILS (test code = 1008) 67 % LYMPHOCYTES (test code = 1010) 25 % MONOCYTES (test code = 1011) 6 % EOSINOPHILS (test code = 1012) 2 % PLATELET COUNT (test code = 1015) 235 K/UL Mamadou MoserHEMOGLOBIN [id number] 00:00:00* Test Item Value Reference Range Interpretation Comme nts HEMOGLOBIN A1c (test code = 38511) 12.6 % Mamadou MoserTHYROID II PROFILE (T3U, T4, T7, TSH)2016-06-03 00:00:00* Test Item Value Reference Range Interpretation Comme nts T3 UPTAKE (test code = 2817) 29.1 % T4 (THYROXINE) (test code = 2819) 8.1 UG/DL CALCULATED T7 (FTI) (test co de = 2820) 2.36 TSH (test code = 2821) 2.8 UIU/ML Mamadou Babb EhsanCOMPREHENSIVE METABOLIC [id number] 00:00:00* Test Item Value Reference Range Interpretation Comme nts GLUCOSE (test code = 2217) 318 MG/DL BUN (test code = 2208) 18 MG/DL CREATININE (test code = 2214) 0.61 MG/DL eGFR AMER. (test cod e = 40934) 131 ML/MIN/1.73 eGFR NON- AMER. (test code = 00490) 113 ML/MIN/1.73 CALC BUN/CREAT (test code = 2235) 30 RATIO SODIUM (test code = 2231) 136 MEQ/L POTASSIUM (test code = 2228) 4.5 MEQ/L CHLORIDE (test code = 2215) 96 MEQ/L CARBON DIOXIDE (test code = 2206) 21 MEQ/L CALCIUM (test code = 2209) 10.1 MG/DL PROTEIN, TOTAL (test code = 2229) 7.2 G/DL ALBUMIN (test code = 2201) 4.8 G/DL CALC GLOBULIN (test code = 2240) 2.4 G/DL CALC A/G RATIO (test code = 2234) 2.0 RATIO BILIRUBIN, TOTAL (test code = 2207) 0.2 MG/DL ALKALINE PHOSPHATASE (test code = 2204) 115 U/L AST (test code = 2218) 12 U/L ALT (test code = 2219) 7 U/L Mamadou MoserCOMPREHENSIVE METABOLIC [id number] 00:00:00* Test Item Value Reference Range Interpretation Comme nts GLUCOSE (test code = 2217) 318 MG/DL BUN (test code = 2208) 18 MG/DL CREATININE (test code = 2214) 0.61 MG/DL eGFR AMER. (test cod e = 30203) 131 ML/MIN/1.73 eGFR NON- AMER. (test code = 35356) 113 ML/MIN/1.73 CALC BUN/CREAT (test code = 2235) 30 RATIO SODIUM (test code = 2231) 136 MEQ/L POTASSIUM (test code = 2228) 4.5 MEQ/L CHLORIDE (test code = 2215) 96 MEQ/L CARBON DIOXIDE (test code = 2206) 21 MEQ/L CALCIUM (test code = 2209) 10.1 MG/DL PROTEIN, TOTAL (test code = 2229) 7.2 G/DL ALBUMIN (test code = 2201) 4.8 G/DL CALC GLOBULIN (test code = 2240) 2.4 G/DL CALC A/G RATIO (test code = 2234) 2.0 RATIO BILIRUBIN, TOTAL (test code = 2207) 0.2 MG/DL ALKALINE PHOSPHATASE (test code = 2204) 115 U/L AST (test code = 2218) 12 U/L ALT (test code = 2219) 7 U/L LIPID [id number] 00:00:00* Test Item Value Reference Range Interpretation Comme nts CHOLESTEROL (test code = 2210) 249 MG/DL TRIGLYCERIDES (test code = 2232) 104 MG/DL HDL CHOLESTEROL (test code = 2220) 56 MG/DL CALC LDL CHOL (test code = 2237) 172 MG/DL RISK RATIO LDL/HDL (test cod e = 2238) 3.08 RATIO CBC W/AUTO [id number] 00:00:00* Test Item Value Reference Range Interpretation Comme nts WBC (test code = 1001) 7.0 K/UL RBC (test code = 1002) 4.87 M/UL HEMOGLOBIN (test code = 1003) 14.2 G/DL HEMATOCRIT (test code = 1004) 41.9 % MCV (test code = 1005) 86.0 fL MCH (test code = 1006) 29.2 PG MCHC (test code = 1007) 33.9 G/DL RDW (test code = 1038) 13.0 % NEUTROPHILS (test code = 1008) 67 % LYMPHOCYTES (test code = 1010) 25 % MONOCYTES (test code = 1011) 6 % EOSINOPHILS (test code = 1012) 2 % BASOPHILS (test code = 1013) % PLATELET COUNT (test code = 1015) 235 K/UL HEMOGLOBIN [id number] 00:00:00* Test Item Value Reference Range Interpretation Comme nts HEMOGLOBIN A1c (test code = 14452) 12.6 % THYROID II PROFILE (T3U, T4, T7, TSH)2016-06-03 00:00:00* Test Item Value Reference Range Interpretation Comme nts T3 UPTAKE (test code = 2817) 29.1 % T4 (THYROXINE) (test code = 2819) 8.1 UG/DL CALCULATED T7 (FTI) (test co de = 2820) 2.36 TSH (test code = 2821) 2.8 UIU/ML CULTURE, [id number] 00:00:00* Test Item Value Reference Range Interpretation Comme nts CULTURE, URINE (test code = 56808) SPECIMEN NUMBER: [id number] Mamadou Bertrand, [id number] 00:00:00* Test Item Value Reference Range Interpretation Comme nts CULTURE, URINE (test code = 19918) SPECIMEN NUMBER: [id number] Mamadou Bertrand, [id number] 00:00:00* Test Item Value Reference Range Interpretation Comme nts CULTURE, URINE (test code = 53932) SPECIMEN NUMBER: [id number] Mamadou Bertrand, [id number] 00:00:00* Test Item Value Reference Range Interpretation Comme nts CULTURE, URINE (test code = 67666) SPECIMEN NUMBER: [id number]
--- NOTE | 2024-10-21 04:05 | ER ---
Nurse's Notes [facility] Name: Jacqui Richardson Age: 49 yrs Sex: Female : 1975 Arrival Date: 10/20/2024 Time: 20:57 Bed IW10 Private MD: Diagnosis: Presentation: 10/20 21:51 Coronavirus screen: Client denies travel out of the [place] in the last 14 days. Ebola tm6 Screen: Patient negative for fever greater than or equal to 101.5 degrees Fahrenheit, and additional compatible Ebola Virus Disease symptoms Patient denies exposure to infectious person. Patient denies travel to an Ebola-affected area in the 21 days before illness onset. No symptoms or risks identified at this time. Initial Sepsis Screen: Does the patient meet any 2 criteria? No. Patient's initial sepsis screen is negative. Does the patient have a suspected source of infection? No. Patient's initial sepsis screen is negative. Risk Assessment: Do you want to hurt yourself or someone else? Patient reports no desire to harm self or others. 21:51 Method Of Arrival: Ambulatory tm6 21:53 Chief complaint: Patient states: my legs and face are swollen. I went to the doctor on tm6 Monday, he said I had a kidney infection, I have been taking an antibiotic. One of my legs started to swell on Monday afternoon, yesterday the other one started to swell. For three days my throat has been sore. Onset of symptoms was October 18, 2024. 21:53 Acuity: ROD 4 tm6 Triage Assessment: 22:01 General: Appears in no apparent distress. Behavior is calm, cooperative. Pain: Denies tm6 pain. EENT: Reports face swollen. Neuro: Level of Consciousness is awake, alert, obeys commands, Oriented to person, place, time, situation. Cardiovascular: Patient's skin is warm and dry. Respiratory: Airway is patent Respiratory effort is even, unlabored, Respiratory pattern is regular, symmetrical. GI: No signs and/or symptoms were reported involving the gastrointestinal system. Abdomen is flat, non-distended. : No signs and/or symptoms were reported regarding the genitourinary system. Derm: Reports swelling in face and legs. Musculoskeletal: Reports swelling in face and legs. SECOND CRUSHER: 21:53 unknown, three months without cycle tm6 Historical: - Allergies: 21:59 seasonal; tm6 - PMHx: 21:49 Hypercholesterolemia; Diabetes mellitus; Hypertensive disorder; tm6 - PSHx: 21:59 None; tm6 - Immunization history:: Flu vaccine is not up to date. - Infectious Disease History:: Denies. - Social history:: Smoking status: Patient denies any tobacco usage or history of. Vital Signs: 21:48 Temp 98.2; tm6 21:53 BP 162 / 82; Pulse 102; Resp 17; Pulse Ox 98% on R/A; MAP 105 mmHg; Weight 79.38 kg; tm6 Height 5 ft. 0 in. ; Pain 0/10; 21:53 Body Mass Index 33.47 (79.38 kg, 154 cm) tm6 21:53 Pain Scale: Adult tm6 ED Course: 21:01 Patient arrived in ED. gm2 21:48 Ryan Buenrostro, CERTIFIED COURT/MEDICAL INTERPRETER-C is PHCP. dr5 21:51 Arm band placed on right wrist. tm6 21:57 Triage completed. tm6 Administered Medications: No medications were administered Outcome: 12 04:04 Eloped from waiting room, before seeing physician vc1 Condition: good 04:04 Patient left the ED. vc1 Signatures: Chasidy Feliz RN RN vc1 Jesica Watson 2 Kristie Jones RN RN tm6 Ryan Buenrostro, CERTIFIED COURT/MEDICAL INTERPRETER-C CERTIFIED COURT/MEDICAL INTERPRETER-Cdr5 Corrections: (The following items were deleted from the chart) 12 22:00 21:49 Allergies: No Known Allergies; tm6 tm6
[2024-10-21 09:19] VITALS: TEMP 98.2
[2024-10-21 09:20] VITALS: BP 162/82; O2SAT 98
== END 2024-10-21 04:04 | disposition left against medical advice (07) ==
LOC: ER 20:57
DX: Z53.21 Procedure and treatment not carried out due to patient leaving prior to being seen by health care provider (principal)
CPT/HCPCS: 99281